=== PATIENT | female | born 1990 | race Two or more races ===

== ENCOUNTER 2025-03-24 20:02 | Observation (INO) | payer MEDICAID, SELFPAY ==
[2025-03-24] VITALS (47 sets, daily range): BP systolic 125–174; BP diastolic 60–77; PULSE 79–97; RESP 16–99; TEMP 36.9; O2SAT 94–99; BMI 53.4
[2025-03-24 21:47] LABS: Collection Type, Urine Clean Catch
[2025-03-24 22:05] LABS: Creatinine,Random Urine 240 mg/dL (30-125); Protein Total, Random Urine 45 mg/dL (1-14)
[2025-03-24 22:16] LABS: Bacteria,Urine Rare; Bilirubin,Urine Negative (Negative); Blood,Urine Negative (Negative); Calcium Oxalate Crystals,Urine 4+; Clarity,Urine Clear (Clear/Hazy); Color,Urine Yellow (Lt Yel-Yel); Glucose, Urine Negative (Negative); Ketones,Urine Negative (Negative); Leukocyte Esterase,Urine Negative (Negative); Nitrite,Urine Negative (Negative); PH,Urine 5.5 (5.0-7.0); Protein,Urine Trace (Neg - Trace); RBC,Urine 5 /hpf (0-3); Squamous Epithelial Cell,Urine 4 /hpf (0-5); Urobilinogen,Urine Negative mg/dL (0.0-1.0); WBC,Urine 5 /hpf (0-5)
[2025-03-24] MEDS: LABETALOL 100 MG TABLET 200 MG PO (22:18)
[2025-03-24] MEDS: metFORMIN 500 MG TABLET PO (22:18)
[2025-03-24 22:21] LABS: Basophils % (Auto) 0 % (0-2.5); Eosinophils # (Auto) 0.1 Thou/mm3 (0.0-0.5); Eosinophils % (Auto) 1 % (0-10); Hematocrit 31.2 % (36.0-46.0); Hemoglobin 10.6 g/dL (12.0-16.0); Immature Granulocytes % (Auto) 1 % (0-0); Immature Granulocytes Auto 0.06 Thou/mm3 (0.00-0.00); Lymphocytes # (Auto) 1.6 Thou/mm3 (1.0-4.8); Lymphocytes % (Auto) 17 % (10-50); Mean Corpuscular Hemoglobin 26.2 pg (25.0-35.0); Mean Corpuscular Volume 77 fL (80-100); Monocytes # (Auto) 0.7 Thou/mm3 (0.0-0.8); Monocytes % (Auto) 7 % (0-12); Neutrophils % (Auto) 74 % (37-80); Nucleated Red Blood Cell % 0 /100 WBC (0); Platelet Count 228 Thou/mm3 (140-440); Red Blood Count 4.04 Miln/mm3 (4.00-5.20); White Blood Count 9.5 Thou/mm3 (3.6-11.0)
[2025-03-24 22:43] LABS: Fibrinogen 455 mg/dL (175-375); Partial Thromboplastin Time 26.8 Seconds (22.0-36.0); Prothrombin Time 10.6 Seconds (9.0-12.2)
[2025-03-24 22:47] LABS: Alanine Aminotransferase 18 U/L (10-49); Albumin, Serum 3.8 gm/dL (3.5-5.0); Albumin/Globulin Ratio 1.4 (1.2-2.2); Alkaline Phosphatase 107 U/L (46-116); Anion Gap 11 (7-16); Aspartate Amino Transferase 20 U/L (0-34); BUN/Creatinine Ratio 16 Ratio (12-20); Bilirubin,Total 0.3 mg/dL (0.3-1.2); Blood Urea Nitrogen 8 mg/dL (9-23); Calcium 8.9 mg/dL (8.3-10.6); Calcium (Corrected) 9.1 mg/dL (8.5-10.1); Carbon Dioxide 23.5 mMol/L (20.0-31.0); Chloride 107 mMol/L (98-107); Creatinine (Component) 0.5 mg/dL (0.6-1.3); Estimated Creatinine Clearance 205.9 mL/min (>60); Globulin 2.7 gm/dL (2.3-3.5); Glucose 85 mg/dL (74-106); Osmolality,Calculated 278 (275-295); Potassium 3.8 mMol/L (3.4-5.1); Sodium 141 mMol/L (136-145); Total Protein 6.5 gm/dL (5.7-8.2); Uric Acid 5.9 mg/dL (3.1-7.8); eGFR > 60 See Note
[2025-03-24] MEDS: BETAMET ACET/BETAMET NA PH (Celestone) 6 MG/ML VIAL 12 MG IM (23:30)
== END 2025-03-24 23:45 | disposition home or self-care (01) ==
PROVIDERS: Admitting Provider Specialist; Visit Provider Specialist
DX: O14.93 Unspecified pre-eclampsia, third trimester (principal); Z3A.31 31 weeks gestation of pregnancy
CPT/HCPCS: 36415; 59899; 80053; 81001; 82570; 84156; 84550; 85025; 85384; 85610; 85730; 96372; G0378; J0702; A9270

== ENCOUNTER 2025-03-26 00:16 | Outpatient (CLI) | payer MEDICAID, SELFPAY ==
[2025-03-26] VITALS (9 sets, daily range): BP systolic 135–137; BP diastolic 61–62; PULSE 78–87; RESP 20–98; TEMP 36.9; O2SAT 98–99; BMI 53.8
[2025-03-26] MEDS: BETAMET ACET/BETAMET NA PH (Celestone) 6 MG/ML VIAL 12 MG IM (01:01)
[2025-03-26 01:06] LABS: Creatinine,Urine 109 mg/dL (30-125); Patient Height,Urine 62 Inches; Patient Weight,Urine 295 Pounds; Protein Total, Urine 35 mg/dL (1-14)
[2025-03-26 01:18] LABS: Creatinine 24 Hour,Urine 1.6 gm/24hr (0.6-1.5); Protein Total, 24 hr Urine 522 mg/24hr (<149); Protein Total, Urine Volume 1490 mL/24hr (600-1800); Total Volume,Urine 1490 mL (600-1800)
[2025-03-26 01:35] LABS: Creatinine (Component) 0.5 mg/dL (0.6-1.3); Estimated Creatinine Clearance 206.9 mL/min (>60); eGFR > 60 See Note
[2025-03-26 02:12] LABS: Collection Time,Urine 24 Hours; Creatinine Clearance Urine 174 mL/min (90-139); Serum Creatinine Result 0.5 mg/dL
== END 2025-03-26 02:21 | disposition home or self-care (01) ==
LOC: S4S1 00:17 → S4SX 00:17
PROVIDERS: Referring Provider Specialist; Visit Provider Specialist
DX: Z34.83 Encounter for supervision of other normal pregnancy, third trimester (principal); Z36.89 Encounter for other specified antenatal screening; Z3A.31 31 weeks gestation of pregnancy
CPT/HCPCS: 36415; 59025; 82565; 82575; 84156; 96372; J0702

== ENCOUNTER 2025-03-29 08:47 | Outpatient (AMB) | payer MEDICAID, SELFPAY ==
--- NOTE | 2025-03-29 08:54 | OBCLNT_ITS ---
Vital Signs 03/29/25 09:00 Height 1.57 m Height Method Stated Weight 132.619 kg Weight Measurement Method Standing Scale BMI 53.4 BP 156/87 H Blood Pressure Source Automatic Cuff Blood Pressure Location Right Upper Arm Position Sitting Respiration 17 Pulse 83 Pulse Source Monitor Temp 97.1 F Temp Source Temporal Artery Scan Pulse Oximetry (%) 97 Oxygen Delivery Method Room Air Allergies/Home Meds Allergies & Medications Allergies No Known Allergies Allergy (Verified 03/29/25 09:01) Medication Reconciliation vitamins no.144-folic acid 400 mcg chewable tablet () 1 mcg PO QDAY #20 tabs 07/06/19 [Rx Confirmed 03/29/25] labetalol 200 mg tablet 200 mg PO TID 03/24/25 [History Confirmed 03/29/25] metformin 500 mg tablet 500 mg PO BID 03/24/25 [History Confirmed 03/29/25] blood sugar diagnostic (Blood Glucose Test strips) #10 ea 03/29/25 [Rx] blood-glucose meter #1 ea 03/29/25 [Rx] lancets #100 ea 03/29/25 [Rx] Intake Visit Data Collection New Patient or Established: Established Patient (seen at [facility] within 3 years) Reason for Visit:: - Transfer of care from Dr. 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 1. Little interest or pleasure in doing things: not at all 2. Feeling down, depressed, or hopeless: not at all Total score: 0 PHQ-9 3. Trouble falling or staying asleep, or sleeping too much: Not at all 4. Feeling tired or having little energy: Not at all 5. Poor appetite or overeating: Not at all 6. Feeling bad about yourself - or that you are a failure or have let yourself or your family down: Not at all 7. Trouble concentrating on things, such as reading the newspaper or watching television: Not at all 8. Moving or speaking so slowly that other people could have noticed? - Or the opposite - being so fidgety or restless that you have been moving around a lot more than usual: not at all 9. Thoughts that you would be better off or of hurting yourself in some way: Not at all Total score: 0 If you checked off any problems, how difficult have these problems made it for you to do your work, take care of things at home, or get along with other people?: not difficult at all Source: Developed by Drs. Abdulkadir Almonte, Patricia Kirk, Aurelio Clemons and colleagues, with an educational uye from [employer]. Depression screen completed yes Social History Living Situation History Marital Status: Lives With: Family Housing: House Tobacco History Smoking Status: Never smoker Alcohol History Alcohol Intake: Never Domestic Abuse History Do You Feel Safe at Home: Yes History of Present Illness HPI Narrative - Grisel Ortega is a 34-year-old with one SAB presenting for transfer of care at 23 weeks 2 days gestation. - Past medical history significant for: - Gestational diabetes mellitus (GDM) with unspecified control - Essential hypertension - Current medications: - Labetalol 200 mg three times daily - Metformin twice daily - Patient reports: - Normal movements - No symptoms suggestive of preeclampsia - Treatment adherence: - Not checking blood sugars due to lack of glucometer - Taking prescribed medications as directed - Planned interventions: - Glucometer to be prescribed for four times daily blood sugar checks - 24-hour urine test scheduled for next week - Delivery planned for 37-38 weeks unless blood pressure or sugars increase No contractions/ LOF/VB, reports good FM No MAS/VC/RUQ/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 Dixon. History of gestational diabetes mellitus and essential hypertension, currently on labetalol 200 mg TID and metformin BID. Reports good movement and denies symptoms suggestive of preeclampsia. Not checking blood sugars due to lack of glucometer. heart rate 145 bpm, anatomy survey normal. JACKIE 05/24/2025. History of deliveries at 37 weeks. Plan: Problem List: Gestational diabetes melli tus, essential hypertension, syphilis (treated), . Prescribe glucometer and instruct patien t to check blood glucose four times daily (fasting and 1 hour post-meals). Continue labetalol and metformin as directed. Schedule 24-hour urine collection next week to monitor for preeclampsia. Plan for delivery at 37?38 weeks unless blood pressure or glucose levels worsen. Arrange anesthesia consult and initiate monitoring. Follow up in one week. Routine counseling provided regarding labor signs, dietary guidance, and activity modifications. Menstrual History Menstrual reliability: definite Flow: normal Menstrual regularity: regular Monthly: Yes Age at menarche: 10 On control pills at conception: No OB History : 7 Para: 5 Hx Total # of Abortions (Spontaneous & Elective): 1 # of Living Children: 5 Delivery History 1st : Child's name: LESLIE MARTIN date: 07/31/08 sex: male Gestational age at delivery (weeks): 38 Delivery type: vaginal weight (lbs): 2267.962 g History of depression before or after : No 2nd : Child's name: SHERLEY MARTIN date: 07/20/09 sex: female Gestational age at delivery (weeks): 38 Delivery type: vaginal weight (lbs): 2267.962 g History of depression before or after : No 3rd : Child's name: MADALYN MARTIN date: 07/27/10 sex: male Gestational age at delivery (weeks): 38 Delivery type: vaginal weight (lbs): 2267.962 g History of depression before or after : No 4th : Child's name: PIO MARTIN date: 03/07/16 sex: female Gestational age at delivery (weeks): 38 Delivery type: vaginal weight (lbs): 2267.962 g History of depression before or after : No 5th : Child's name: LAUREL ORTEGA date: 07/09/19 sex: male Gestational age at delivery (weeks): 38 Delivery type: vaginal weight (lbs): 2721.554 g History of depression before or after : Yes Infection History & Risk Evaluation History of STDs: none HIV risk evaluation: low risk Hepatitis B risk evaluation: low risk Patient or partner has history of Genital Herpes: No Varicella/chicken pox status: immunized Genetic Screening & History Genetic Screening/Teratology Counseling - Includes patient, baby's father, or anyone in either family with: 1. Patient's age 35 years or older as of estimated date of delivery: Yes 2. Thalassemia (Mosotho, Bangladeshi, Mediterranean, or Background); MCV less than 80: No 3. Neural Tube Defect (Meningomyelocele, Spina Bifida, or Anencephaly): No 4. Congenital Heart Defect: No 5. Down Syndrome: No 6. Jamari-Sachs (Ashkenazi Baptist, Cajun, Telugu Bangladeshi): No 7. Mehnaz Disease (Ashkenazi Baptist): No 8. Familial Dysautonomia (Ashkenazi Baptist): No 9. Sickle Cell Disease or Trait (): No 10. Hemophilia or other blood disorders: No 11. Muscular Dystrophy: No 12. Cystic Fibrosis: No 13. Vance's Chorea: No 14. Mental Retardation/Autism: No 15. Other inherited genetic or chromosomal disorder: No 16. Maternal Metabolic Disorder (EG,TYPE 1 Diabetes, PKU): No 17. Patient or baby's father had a child with defects not listed above: No 18. Recurrent loss or a stillbirth: No 19. Medications (including supplements, vitamins, herbs or otc drugs)/illicit/recreational drugs/alcohol since last menstrual period: No 20. Any other: No Comments/Counseling: ADHD HISTORY ON ONE CHILD Infection History 1. Live with someone with TB or exposed to TB: No 2. Rash or viral illness since last menstrual period: No 3. Hepatitis B,C: No Other (see comments) Source: [employer] Exam General General Appearance: alert, in no apparent distress and healthy appearing Head Head exam: atraumatic Neck Neck exam: Present normal inspection and trachea midline Chest Chest inspection: Present normal inspection and symmetric chest wall rise External exam: Present normal external exam; Absent tenderness Neuro Neurological exam: Present oriented X3 Psych Psychiatric exam: Present normal affect and normal mood Office Procedures OB Clinic LOC & Office Proc's Nursing/Assessment Patient Status: Established Patient OB Clinic Nursing Assessment: Medication Reconciliation, Update PMH in EMR and Vital Signs OB Clinic Coordination of Care: Complex Care and Chronic Disease 1-5, Consent,records obtained, informed consent, Education Simp Pt/Fam, Lab and Imaging orders, Results/Orders obtained and Staff clarify orders Special Needs: Heart tones Established Patient Charge Established Patient Point Assignment: 135 Established Patient Point Charge: EP Level 4 (120-155) Assessment & Plan Diagnosis / Problem List (1) Supervision of high risk , unspecified, third trimester: Status: Acute Plan Problem List - Gestational diabetes mellitus - Essential hypertension - Syphilis - 7 para 5 Assessment - : , 34-year-old female, JACKIE 05/24/2025 - Gestational diabetes mellitus with unspecified control - Essential hypertension, on labetalol 200 mg TID - History of positive RPR at start of , now nonreactive - status: Normal anatomy survey, FHR 145 bpm, normal movements - History of deliveries at 37 weeks Plan - Prescribe glucometer for blood sugar checks four times daily (upon waking and 1 hour after each meal) - Continue labetalol 200 mg three times daily and metformin twice daily - Schedule anesthesia and monitoring at the hospital - Plan delivery for 37-38 weeks unless blood pressure or sugars increase - Repeat 24-hour urine test next week to monitor for preeclampsia - Follow up appointment in one week Educated the patient on labor signs, including regular contractions, lower back pain, and changes in vaginal discharge. Advised avoiding heavy lifting and getting adequate rest. Instructed to contact the office immediately if any signs occur. Discussed the importance of a balanced diet rich in folic acid, iron, and calcium, and provided a list of recommended and to-avoid foods. Emphasized avoiding high-sugar foods to reduce gestational diabetes risk. Encour aged hydration and frequent, small meals for energy..
[2025-03-29 09:00] VITALS: BP 156/87; PULSE 83; RESP 17; TEMP 36.2; O2SAT 97; BMI 53.4
== END 2025-03-29 09:46 | disposition home or self-care (01) ==
LOC: HODSOBC 08:47
PROVIDERS: Supervising Provider Obstetrics & Gynecology; Visit Provider Obstetrics & Gynecology
DX: O09.523 Supervision of elderly multigravida, third trimester (principal); O09.43 Supervision of pregnancy with grand multiparity, third trimester; Z3A.32 32 weeks gestation of pregnancy; O09.893 Supervision of other high risk pregnancies, third trimester; O24.415 Gestational diabetes mellitus in pregnancy, controlled by oral hypoglycemic drugs; O10.013 Pre-existing essential hypertension complicating pregnancy, third trimester; O98.113 Syphilis complicating pregnancy, third trimester; O09.293 Supervision of pregnancy with other poor reproductive or obstetric history, third trimester; Z87.59 Personal history of other complications of pregnancy, childbirth and the puerperium; Z79.899 Other long term (current) drug therapy
CPT/HCPCS: 99214; G0463

== ENCOUNTER 2025-04-04 15:19 | Outpatient (AMB) | payer MEDICAID, SELFPAY ==
--- NOTE | 2025-04-04 15:37 | OBCLNT_ITS ---
Vital Signs 04/04/25 15:45 Height 1.57 m Height Method Stated Weight 132.619 kg Weight Measurement Method Standing Scale BMI 53.8 BP 143/84 H Blood Pressure Source Automatic Cuff Blood Pressure Location Right Upper Arm Position Sitting Respiration 22 H Pulse 102 H Pulse Source Monitor Temp 97.9 F Temp Source Oral Pulse Oximetry (%) 98 Oxygen Delivery Method Room Air Allergies/Home Meds Allergies & Medications Allergies No Known Allergies Allergy (Verified 04/17/25 15:37) Medication Reconciliation vitamins no.144-folic acid 400 mcg chewable tablet () 1 mcg PO QDAY #20 tabs 07/06/19 [Rx Confirmed 04/17/25] labetalol 200 mg tablet 200 mg PO TID 03/24/25 [History Confirmed 04/17/25] metformin 500 mg tablet 500 mg PO BID 03/24/25 [History Confirmed 04/17/25] blood sugar diagnostic (Blood Glucose Test strips) #10 ea 03/29/25 [Rx Confirmed 04/17/25] blood-glucose meter #1 ea 03/29/25 [Rx Confirmed 04/17/25] lancets #100 ea 03/29/25 [Rx Confirmed 04/17/25] labetalol 400 mg tablet 400 mg PO BID 30 days #60 tabs 04/17/25 [Rx Confirmed 04/17/25] nifedipine 60 mg tablet,extended release 60 mg PO QDAY 30 days #30 tabs 04/17/25 [Rx Confirmed 04/17/25] nifedipine 60 mg tablet,extended release 60 mg PO QDAY 30 days #30 tabs 04/17/25 [Rx Confirmed 04/17/25] Intake Visit Data Collection New Patient or Established: Established Patient (seen at [facility] within 3 years) Reason for Visit:: CARE Seen by Clinical Staff ONLY (RN/MA): No Order Schedule Clerk Required: No Do You Feel Safe at Home: Yes Authorities Contacted: N/A PCP or OBGYN visit in last 3 months: Yes Hx Now: Yes Are you currently on any form of Control: No Pain Present Currently: No Pain Scale Used: Cheney-Nuñez/Numerical Pain scale:: 0 Smoking Status Smoking Status: Never smoker Questionnaires Covid-19 Vaccine Questionnaire Has patient been vacinated for Covid-19 Have you been vacinated for Covid-19: Yes PHQ-9 PHQ-2 Over the last 2 weeks, how often have you been bothered by any of the following problems? 1. Little interest or pleasure in doing things: not at all 2. Feeling down, depressed, or hopeless: not at all Total score: 0 PHQ-9 3. Trouble falling or staying asleep, or sleeping too much: Not at all 4. Feeling tired or having little energy: Not at all 5. Poor appetite or overeating: Not at all 6. Feeling bad about yourself - or that you are a failure or have let yourself or your family down: Not at all 7. Trouble concentrating on things, such as reading the newspaper or watching television: Not at all 8. Moving or speaking so slowly that other people could have noticed? - Or the opposite - being so fidgety or restless that you have been moving around a lot more than usual: not at all 9. Thoughts that you would be better off or of hurting yourself in some way: Not at all Total score: 0 Source: Developed by Drs. Abdulkadir Almonte, Patricia Kirk, Aurelio Clemons and colleagues, with an educational yue from [employer] 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 Dixon. History of gestational diabetes mellitus and essential hypertension, currently on labetalol 200 mg TID and metformin BID. Reports good movement and denies symptoms suggestive of preeclampsia. Not checking blood sugars due to lack of glucometer. heart rate 145 bpm, anatomy survey normal. JACKIE 05/24/2025. History of deliveries at 37 weeks. Plan: Problem List: Gestational diabetes lucíai tus, essential hypertension, syphilis (treated), . Prescribe glucometer and instruct patien t to check blood glucose four times daily (fasting and 1 hour post-meals). Continue labetalol and metformin as directed. Schedule 24-hour urine collection next week to monitor for preeclampsia. Plan for delivery at 37?38 weeks unless blood pressure or glucose levels worsen. Arrange anesthesia consult and initiate monitoring. Follow up in one week. Routine counseling provided regarding labor signs, dietary guidance, and activity modifications. 04/04/25 -?-?-?-?-?-?-?-?-?-?-?-?- 32w 6d 132.619 kg 143/84 at 32w6d, transferred in third trimester. History of gestational diabetes, chronic/gestational hypertension, prior , and treated syphilis. On labetalol and metformin; adherent to diet and medications. Reports good FM, no contractions, LOF, VB, MAS, VC, or epigastric pain. Glucose readings reviewed: 84?196 mg/dL, overall stable. BP reported as well controlled; FHT 148?150 bpm. Concerned about possible early delivery based on history. Plan: Continue labetalol and metformin, with metformin taken BID near meals. Maintain glucose and BP logs. Await call to begin NSTs twice weekly. Schedule ultrasound at 36 weeks. Follow up in 1 week. Anticipate delivery around 37?38 weeks pending control. Routine precautions and education reviewed. 04/09/25 -?-?-?-?-?-?-?-?-?-?-?-?- 33w 4d 131.655 kg 146/85 @34w, presents with HTN, GDM, MAS, and left pelvic pain. On labetalol 600mg/day with continued MAS; BP control suboptimal. Glucose well controlled on metformin (fasting 81?117, postprandial 109?150). Reports intermittent pelvic pain impairing mobility. No LOF/VB/CTX. FHT WNL. Hx of elevated urine protein and received steroids at 32w. Plan: Increase labetalol to 400mg BID, s end to hospital for LFTs, renal labs. Monitor for preeclampsia. Continue metformin. Instructions for L&D visit if pain persists. Anticipate delivery 36?37w, earlier if unstable. F/u in 1 week. 04/17/25 -?-?-?-?-?-?-?-?-?-?-?-?- 34w 5d 133.47 kg 159/88 G5 at 34w5d with chronic hypertension and gestational diabetes, presents with BP 159/88, significant unilateral foot swelling, and reported contractions. Reports good FM. Denies MAS/VC/epigastric pain. Previous evaluation ruled out preeclampsia (LFTs/LDH/platelets normal), though proteinuria was 600. Labs pending. Prescription for labetalol 800 mg was not received. Blood sugars stable on metformin. Plan: New prescription for labetalol 400 mg BID and initiate nifedipine at lunch. Follow up for BP check and labs; consider induction if BP remains elevated. Order hospital ultrasound to confirm position. Continue FM monitoring, preeclampsia precautions, and weekly visits. JACKIE Calculator Estimated Delivery Date Method Current WG Current Estimate 05/24/25 Ultrasound #1 34w 6d Other Estimates 05/24/25 LMP (Uncertain) 34w 6d Office Procedures OB Clinic LOC & Office Proc's Nursing/Assessment Patient Status: Established Patient OB Clinic Nursing Assessment: Medication Reconciliation, Update PMH in EMR and Vital Signs OB Clinic Coordination of Care: Complex Care and Chronic Disease 1-5, Consent,records obtained, informed consent, Education Simp Pt/Fam, Lab and Imaging orders, Results/Orders obtained and Staff clarify orders Special Needs: Heart tones Established Patient Charge Established Patient Point Assignment: 135 Established Patient Point Charge: EP Level 4 (120-155)
[2025-04-04 15:45] VITALS: BP 143/84; PULSE 102; RESP 22; TEMP 36.6; O2SAT 98; BMI 53.8
== END 2025-04-04 15:53 | disposition home or self-care (01) ==
LOC: HODSOBC 15:19
PROVIDERS: PCP Obstetrics & Gynecology; Referring Provider Obstetrics & Gynecology; Supervising Provider Obstetrics & Gynecology; Visit Provider Obstetrics & Gynecology
DX: O09.523 Supervision of elderly multigravida, third trimester (principal); O09.43 Supervision of pregnancy with grand multiparity, third trimester; O09.293 Supervision of pregnancy with other poor reproductive or obstetric history, third trimester; O34.219 Maternal care for unspecified type scar from previous cesarean delivery; O09.893 Supervision of other high risk pregnancies, third trimester; O10.913 Unspecified pre-existing hypertension complicating pregnancy, third trimester; O24.415 Gestational diabetes mellitus in pregnancy, controlled by oral hypoglycemic drugs; Z3A.32 32 weeks gestation of pregnancy; Z79.899 Other long term (current) drug therapy
CPT/HCPCS: 99214; G0463

== ENCOUNTER 2025-04-09 13:48 | Outpatient (AMB) | payer MEDICAID, SELFPAY ==
[2025-04-09 14:30] VITALS: BP 146/85; PULSE 98; RESP 18; TEMP 36; O2SAT 98; BMI 53.4
--- NOTE | 2025-04-09 14:30 | OBCLNT_ITS ---
Vital Signs 04/09/25 14:30 Height 1.57 m Height Method Stated Weight 131.655 kg Weight Measurement Method Standing Scale BMI 53.4 BP 146/85 H Blood Pressure Source Automatic Cuff Blood Pressure Location Left Upper Arm Position Sitting Respiration 18 Pulse 98 Pulse Source Monitor Temp 96.8 F Temp Source Oral Pulse Oximetry (%) 98 Oxygen Delivery Method Room Air Allergies/Home Meds Allergies & Medications Allergies No Known Allergies Allergy (Verified 04/09/25 14:31) Medication Reconciliation vitamins no.144-folic acid 400 mcg chewable tablet () 1 mcg PO QDAY #20 tabs 07/06/19 [Rx Confirmed 04/09/25] labetalol 200 mg tablet 200 mg PO TID 03/24/25 [History Confirmed 04/09/25] metformin 500 mg tablet 500 mg PO BID 03/24/25 [History Confirmed 04/09/25] blood sugar diagnostic (Blood Glucose Test strips) #10 ea 03/29/25 [Rx Confirmed 04/09/25] blood-glucose meter #1 ea 03/29/25 [Rx Confirmed 04/09/25] lancets #100 ea 03/29/25 [Rx Confirmed 04/09/25] Intake Visit Data Collection New Patient or Established: Established Patient (seen at [facility] within 3 years) Reason for Visit:: OBC Seen by Clinical Staff ONLY (RN/MA): No Customer Services Supervisor Required: No Do You Feel Safe at Home: Yes Authorities Contacted: N/A PCP or OBGYN visit in last 3 months: Yes Date of Last PCP or OBGYN visit: 04/04/25 Hx Now: Yes Are you currently on any form of Control: No Pain Present Currently: No Pain Scale Used: Cheney-Nuñez/Numerical Pain scale:: 0 Smoking Status Smoking Status: Never smoker Questionnaires Covid-19 Vaccine Questionnaire Has patient been vacinated for Covid-19 Have you been vacinated for Covid-19: Yes PHQ-9 PHQ-2 Over the last 2 weeks, how often have you been bothered by any of the following problems? 1. Little interest or pleasure in doing things: not at all 2. Feeling down, depressed, or hopeless: not at all Total score: 0 PHQ-9 3. Trouble falling or staying asleep, or sleeping too much: Not at all 4. Feeling tired or having little energy: Not at all 5. Poor appetite or overeating: Not at all 6. Feeling bad about yourself - or that you are a failure or have let yourself or your family down: Not at all 7. Trouble concentrating on things, such as reading the newspaper or watching television: Not at all 8. Moving or speaking so slowly that other people could have noticed? - Or the opposite - being so fidgety or restless that you have been moving around a lot more than usual: not at all 9. Thoughts that you would be better off or of hurting yourself in some way: Not at all Total score: 0 If you checked off any problems, how difficult have these problems made it for you to do your work, take care of things at home, or get along with other people?: not difficult at all Source: Developed by Drs. Abdulkadir Almonte, Patricia Kirk, Aurelio Clemons and colleagues, with an educational yue from [employer]. 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 Patient reports pelvic pain on the left side that comes and goes, sometimes lasting all day. No contractions, LOF, VB and reports good FM. Patient reports headaches with pressure sensation. Denies VC, and epigastric pain. - Grisel Ortega is a female with gestational diabetes and hypertension presenting for follow-up of her chronic conditions and new symptoms. - Blood sugar control: - Fasting sugars ranging from 81-117 mg/dL - Post-meal sugars ranging from 109-150 mg/dL - Patient reports anxiety about checking sugars frequently - Hypertension: - Currently taking labetalol 200 mg three times daily (600 mg total) - Experiencing headaches that come and go - Describes as pressure - Partially relieved with Tylenol but persists - New left-sided pelvic pain: - Intermittent, sometimes lasting all day - Can be severe, affecting ability to walk or stand - No associated tightening reported - Denies: - Current flashes of light (experienced in the past) - Right-sided abdominal pain - Recent hospitalization at 32 weeks for elevated urine protein - Received steroid shots for lung maturation - Expresses concern about liver and kidney health due to past finding of liver spots heart tones: [Not mentioned] bpm. Laboratory, Imaging, and Diagnostic Test Results - Blood glucose readings: - Fastin, 81, 94, 117, 84 mg/dL - Post-prandial: 138, 140, 109 mg/dL Care OB Visit Log OB Flowsheet Initial Weight: Not Recorded Date -?-?-?-?-?-?-?-?-?-?-?-?- EGA Weight BP Alb Glu CTX Pres Fundal ht FHR Mov Dilation Station Effacement Hx Notes Visit Note 03/29/25 -?-?-?-?-?-?-?-?-?-?-?--?- 32w 0d 132.619 kg 156/87 at 23 weeks and 2 days gestation, presents for transfer of care from Dr. Dixon. History of gestational diabetes mellitus and essential hypertension, currently on labetalol 200 mg TID and metformin BID. Reports good movement and denies symptoms suggestive of preeclampsia. Not checking blood sugars due to lack of glucometer. heart rate 145 bpm, anatomy survey normal. JACKIE 05/24/2025. History of deliveries at 37 weeks. Plan: Problem List: Gestational diabetes melli tus, essential hypertension, syphilis (treated), . Prescribe glucometer and instruct patien t to check blood glucose four times daily (fasting and 1 hour post-meals). Continue labetalol and metformin as directed. Schedule 24-hour urine collection next week to monitor for preeclampsia. Plan for delivery at 37?38 weeks unless blood pressure or glucose levels worsen. Arrange anesthesia consult and initiate monitoring. Follow up in one week. Routine counseling provided regarding labor signs, dietary guidance, and activity modifications. 04/09/25 -?-?-?-?-?-?-?-?-?-?-?-?- 33w 4d 131.655 kg 146/85 @34w, presents with HTN, GDM, MAS, and left pelvic pain. On labetalol 600mg/day with continued MAS; BP control suboptimal. Glucose well controlled on metformin (fasting 81?117, postprandial 109?150). Reports intermittent pelvic pain impairing mobility. No LOF/VB/CTX. FHT WNL. Hx of elevated urine protein and received steroids at 32w. Plan: Increase labetalol to 400mg BID, s end to hospital for LFTs, renal labs. Monitor for preeclampsia. Continue metformin. Instructions for L&D visit if pain persists. Anticipate delivery 36?37w, earlier if unstable. F/u in 1 week. JACKIE Calculator Estimated Delivery Date Method Current WG Current Estimate 05/24/25 Ultrasound #1 33w 6d Other Estimates 05/24/25 LMP (Uncertain) 33w 6d Exam General General Appearance: alert, in no apparent distress and healthy appearing Head Head exam: atraumatic Neck Neck exam: Present normal inspection and trachea midline Chest Chest inspection: Present normal inspection and symmetric chest wall rise External exam: Present normal external exam; Absent tenderness Neuro Neurological exam: Present oriented X3 Psych Psychiatric exam: Present normal affect and normal mood Office Procedures OB Clinic LOC & Office Proc's Nursing/Assessment Patient Status: Established Patient OB Clinic Nursing Assessment: Medication Reconciliation, Update PMH in EMR and Vital Signs OB Clinic Coordination of Care: Education Complex Pt/Fam, Consent,records obtained, informed consent, Lab and Imaging orders and Staff clarify orders Special Needs: Heart tones Established Patient Charge Established Patient Point Assignment: 110 Established Patient Point Charge: EP Level 3 (80-115) Assessment & Plan Diagnosis / Problem List (1) Supervision of high risk , unspecified, third trimester: Status: Acute Plan Problem List - Gestational Diabetes Mellitus - Gestational Hypertension - Pelvic Pain - Headache Assessment 34-year-old at 34 weeks gestation presenting with persistent hypertension, currently on labetalol 200mg TID (600mg total daily). Blood pressure remains a primary concern despite medication. Patient reports intermittent left-sided pelvic pain, which can be severe enough to impair mobility. Gestational diabetes is well-controlled on metformin with recent blood glucose readings within target range (fasting 81-117 mg/dL, postprandial 109-140 mg/dL). Patient experiences recurrent headaches, described as pressure-like, partially responsive to Tylenol. No visual disturbances or right upper quadrant pain reported. History of elevated urinary protein (500 mg/dL at 32 weeks) and previous liver abnormalities (black spots) noted. Patient received corticosteroids at 32 weeks gestation. Plan - Increase labetalol dosage to 800mg daily (400mg morning, 400mg evening) - Monitor blood pressure closely; if not controlled, consider introducing a second medication or hospitalization for IV medication - Patient instructed to go to 4th floor of [facility] (labor and delivery) if experiencing persistent pelvic pain for monitoring and evaluation of contractions - Continue current metformin regimen and diet for blood sugar management - Patient sent to hospital for immediate lab work to check liver and kidney function - Schedule follow-up appointment in one week - Plan for delivery between 36-37 weeks gestation, potentially earlier (35 weeks) if blood pressure remains uncontrolled - Continue monitoring for signs of preeclampsia (headaches, visual disturbances, right upper quadrant pain) (If not initial visit and GA >20 weeks): 1. Progress Reviewed gestational age, growth, and heart rate. Planned frequent visits (every 2 weeks until 36 weeks, then weekly). 2. Instructed patient to monitor movements and report decreases immediately. 3. Testing Counseled on routine third-trimester labs per guidelines. Discussed potential need for ultrasound or monitoring based on risk factors. 4. Preeclampsia Precaution Educated on preeclampsia signs: severe headache, vision changes, right upper quadrant pain, sudden swelling. Advised urgent reporting of symptoms and discussed blood pressure monitoring if high risk. 5. Labor Precautions Reviewed labor signs: regular contractions, pelvic pressure, back pain, bleeding, or fluid leakage. Instructed to seek immediate care for these symptoms. 6. Lifestyle and Delivery Preparation Reinforced vitamins, nutrition, and safe activity. Discussed plan, pain management, and . Advised on labor preparation (e.g., hospital bag) and expectations. 7. Psychosocial Support Assessed emotional well-being and offered resources for mental health or parenting support.
== END 2025-04-09 15:22 | disposition home or self-care (01) ==
LOC: HODSOBC 13:48
PROVIDERS: Supervising Provider Obstetrics & Gynecology; Visit Provider Obstetrics & Gynecology
DX: O09.523 Supervision of elderly multigravida, third trimester (principal); O09.893 Supervision of other high risk pregnancies, third trimester; O24.415 Gestational diabetes mellitus in pregnancy, controlled by oral hypoglycemic drugs; O13.3 Gestational [pregnancy-induced] hypertension without significant proteinuria, third trimester; Z3A.33 33 weeks gestation of pregnancy; O99.891 Other specified diseases and conditions complicating pregnancy; R10.2 Pelvic and perineal pain; Z79.899 Other long term (current) drug therapy
CPT/HCPCS: 99213; G0463

== ENCOUNTER 2025-04-09 16:03 | Outpatient (CLI) | payer MEDICAID, SELFPAY ==
[2025-04-09] VITALS (9 sets, daily range): BP systolic 127–144; BP diastolic 58–77; PULSE 79–88; RESP 18–97; TEMP 36.8; BMI 53.0
[2025-04-09 17:33] LABS: Collection Type, Urine Clean Catch
[2025-04-09 17:34] LABS: Basophils % (Auto) 0 % (0-2.5); Eosinophils # (Auto) 0.1 Thou/mm3 (0.0-0.5); Eosinophils % (Auto) 1 % (0-10); Hematocrit 32.2 % (36.0-46.0); Hemoglobin 11.1 g/dL (12.0-16.0); Immature Granulocytes % (Auto) 1 % (0-0); Immature Granulocytes Auto 0.06 Thou/mm3 (0.00-0.00); Lymphocytes # (Auto) 1.5 Thou/mm3 (1.0-4.8); Lymphocytes % (Auto) 14 % (10-50); Mean Corpuscular HGB Conc 34.5 g/dl (31.0-37.0); Mean Corpuscular Hemoglobin 26.5 pg (25.0-35.0); Mean Corpuscular Volume 77 fL (80-100); Monocytes # (Auto) 0.5 Thou/mm3 (0.0-0.8); Monocytes % (Auto) 5 % (0-12); Neutrophils # (Auto) 8.2 Thou/mm3 (1.8-7.7); Neutrophils % (Auto) 80 % (37-80); Nucleated Red Blood Cell % 0 /100 WBC (0); Platelet Count 239 Thou/mm3 (140-440); Red Blood Count 4.19 Miln/mm3 (4.00-5.20); White Blood Count 10.3 Thou/mm3 (3.6-11.0)
[2025-04-09 17:44] LABS: Bilirubin,Urine Negative (Negative); Blood,Urine Negative (Negative); Clarity,Urine Clear (Clear/Hazy); Color,Urine Yellow (Lt Yel-Yel); Glucose, Urine Negative (Negative); Ketones,Urine 1+ (Negative); Leukocyte Esterase,Urine Negative (Negative); Nitrite,Urine Negative (Negative); PH,Urine 5.5 (5.0-7.0); Protein,Urine Trace (Neg - Trace); RBC,Urine 1 /hpf (0-3); Specific Gravity,Urine 1.025 (1.001-1.035); Squamous Epithelial Cell,Urine 3 /hpf (0-5); WBC,Urine 2 /hpf (0-5)
[2025-04-09 17:52] LABS: Alanine Aminotransferase 22 U/L (10-49); Albumin, Serum 3.7 gm/dL (3.5-5.0); Albumin/Globulin Ratio 1.5 (1.2-2.2); Alkaline Phosphatase 134 U/L (46-116); Anion Gap 12 (7-16); Aspartate Amino Transferase 20 U/L (0-34); BUN/Creatinine Ratio 13 Ratio (12-20); Bilirubin,Total 0.4 mg/dL (0.3-1.2); Blood Urea Nitrogen 5 mg/dL (9-23); Calcium 9.3 mg/dL (8.3-10.6); Calcium (Corrected) 9.5 mg/dL (8.5-10.1); Carbon Dioxide 21.6 mMol/L (20.0-31.0); Chloride 108 mMol/L (98-107); Creatinine (Component) 0.4 mg/dL (0.6-1.3); Estimated Creatinine Clearance 256.2 mL/min (>60); Globulin 2.5 gm/dL (2.3-3.5); Glucose 90 mg/dL (74-106); LDH (Lactate Dehydrogenase) 163 U/L (120-246); Osmolality,Calculated 280 (275-295); Potassium 3.8 mMol/L (3.4-5.1); Sodium 142 mMol/L (136-145); Total Protein 6.2 gm/dL (5.7-8.2); Uric Acid 5.7 mg/dL (3.1-7.8); eGFR > 60 See Note
[2025-04-09 17:53] LABS: Partial Thromboplastin Time 26.9 Seconds (22.0-36.0); Prothrombin Time 10.5 Seconds (9.0-12.2)
[2025-04-09 21:31] LABS: Fibrinogen 612 mg/dL (175-375)
== END 2025-04-09 18:50 | disposition home or self-care (01) ==
LOC: S4S1 16:34 → S4SX 16:35
PROVIDERS: PCP Specialist; Referring Provider Specialist; Visit Provider Specialist
DX: Z34.83 Encounter for supervision of other normal pregnancy, third trimester (principal); Z36.9 Encounter for antenatal screening, unspecified; Z3A.33 33 weeks gestation of pregnancy
CPT/HCPCS: 36415; 59025; 80053; 81001; 83615; 84450; 84550; 85025; 85384; 85610; 85730

== ENCOUNTER 2025-04-17 13:42 | Outpatient (AMB) | payer MEDICAID, SELFPAY ==
[2025-04-17 14:09] VITALS: BP 159/88; PULSE 86; RESP 18; TEMP 36.2; O2SAT 98
--- NOTE | 2025-04-17 14:09 | OBCLNT_ITS ---
Vital Signs 04/17/25 14:09 Weight 133.47 kg Weight Measurement Method Standing Scale BP 159/88 H Blood Pressure Source Automatic Cuff Blood Pressure Location Left Upper Arm Position Sitting Respiration 18 Pulse 86 Pulse Source Monitor Temp 97.2 F Temp Source Oral Pulse Oximetry (%) 98 Oxygen Delivery Method Room Air Allergies/Home Meds Allergies & Medications Allergies No Known Allergies Allergy (Verified 04/17/25 15:37) Medication Reconciliation vitamins no.144-folic acid 400 mcg chewable tablet () 1 mcg PO QDAY #20 tabs 07/06/19 [Rx Confirmed 04/17/25] labetalol 200 mg tablet 200 mg PO TID 03/24/25 [History Confirmed 04/17/25] metformin 500 mg tablet 500 mg PO BID 03/24/25 [History Confirmed 04/17/25] blood sugar diagnostic (Blood Glucose Test strips) #10 ea 03/29/25 [Rx Confirmed 04/17/25] blood-glucose meter #1 ea 03/29/25 [Rx Confirmed 04/17/25] lancets #100 ea 03/29/25 [Rx Confirmed 04/17/25] labetalol 400 mg tablet 400 mg PO BID 30 days #60 tabs 04/17/25 [Rx Confirmed 04/17/25] nifedipine 60 mg tablet,extended release 60 mg PO QDAY 30 days #30 tabs 04/17/25 [Rx Confirmed 04/17/25] nifedipine 60 mg tablet,extended release 60 mg PO QDAY 30 days #30 tabs 04/17/25 [Rx Confirmed 04/17/25] Intake Visit Data Collection New Patient or Established: Established Patient (seen at [facility] within 3 years) Reason for Visit:: OBC Seen by Clinical Staff ONLY (RN/MA): No 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 1. Little interest or pleasure in doing things: not at all 2. Feeling down, depressed, or hopeless: not at all Total score: 0 PHQ-9 3. Trouble falling or staying asleep, or sleeping too much: Not at all 4. Feeling tired or having little energy: Not at all 5. Poor appetite or overeating: Not at all 6. Feeling bad about yourself - or that you are a failure or have let yourself or your family down: Not at all 7. Trouble concentrating on things, such as reading the newspaper or watching television: Not at all 8. Moving or speaking so slowly that other people could have noticed? - Or the opposite - being so fidgety or restless that you have been moving around a lot more than usual: not at all 9. Thoughts that you would be better off or of hurting yourself in some way: Not at all Total score: 0 If you checked off any problems, how difficult have these problems made it for you to do your work, take care of things at home, or get along with other people?: not difficult at all Source: Developed by Drs. Abdulkadir Almonte, Patricia Kirk, Aurelio Clemons and colleagues, with an educational yue from [employer]. 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 Patient reports contractions and significant swelling, particularly in one foot. Reports significant swelling, particularly in one foot. Denies MAS, VC, and epigastric pain. - Grisel Ortega is a 34-year-old G5 female at 34 weeks and 5 days gestation with a history of chronic hypertension and gestational diabetes, presenting for a visit. - Chief complaints: - Elevated blood pressure (159/88) - Worse than before labetalol increase to 800 mg daily - Significant swelling, particularly in one foot - Pain and contractions - Did not seek medical attention earlier - Recent healthcare interactions: - Previously sent to hospital - Told she does not have pre-eclampsia - Medication adherence: - Prescription for increased labetalol not received at [facility] - Associated symptoms: - Reports baby is active - Stable blood sugars on metformin Care OB Visit Log OB Flowsheet Initial Weight: Not Recorded Date -?-?-?-?-?-?-?-?-?-?-?-?- EGA Weight BP Alb Glu CTX Pres Fundal ht FHR Mov Dilation Station Effacement Hx Notes Visit Note 03/29/25 -?-?-?-?-?-?-?-?-?-?-?-?- 32w 0d 132.619 kg 156/87 at 23 weeks and 2 days gestation, presents for transfer of care from Dr. Dixon. History of gestational diabetes mellitus and essential hypertension, currently on labetalol 200 mg TID and metformin BID. Reports good movement and denies symptoms suggestive of preeclampsia. Not checking blood sugars due to lack of glucometer. heart rate 145 bpm, anatomy survey normal. JACKIE 05/24/2025. History of deliveries at 37 weeks. Plan: Problem List: Gestational diabetes melli tus, essential hypertension, syphilis (treated), . Prescribe glucometer and instruct patien t to check blood glucose four times daily (fasting and 1 hour post-meals). Continue labetalol and metformin as directed. Schedule 24-hour urine collection next week to monitor for preeclampsia. Plan for delivery at 37?38 weeks unless blood pressure or glucose levels worsen. Arrange anesthesia consult and initiate monitoring. Follow up in one week. Routine counseling provided regarding labor signs, dietary guidance, and activity modifications. 04/09/25 -?-?-?-?-?-?-?-?-?-?-?-?- 33w 4d 131.655 kg 146/85 @34w, presents with HTN, GDM, MAS, and left pelvic pain. On labetalol 600mg/day with continued MAS; BP control suboptimal. Glucose well controlled on metformin (fasting 81?117, postprandial 109?150). Reports intermittent pelvic pain impairing mobility. No LOF/VB/CTX. FHT WNL. Hx of elevated urine protein and received steroids at 32w. Plan: Increase labetalol to 400mg BID, s end to hospital for LFTs, renal labs. Monitor for preeclampsia. Continue metformin. Instructions for L&D visit if pain persists. Anticipate delivery 36?37w, earlier if unstable. F/u in 1 week. 04/17/25 -?-?-?-?-?-?-?-?-?-?-?-?- 34w 5d 133.47 kg 159/88 G5 at 34w5d with chronic hypertension and gestational diabetes, presents with BP 159/88, significant unilateral foot swelling, and reported contractions. Reports good FM. Denies MAS/VC/epigastric pain. Previous evaluation ruled out preeclampsia (LFTs/LDH/platelets normal), though proteinuria was 600. Labs pending. Prescription for labetalol 800 mg was not received. Blood sugars stable on metformin. Plan: New prescription for labetalol 400 mg BID and initiate nifedipine at lunch. Follow up for BP check and labs; consider induction if BP remains elevated. Order hospital ultrasound to confirm position. Continue FM monitoring, preeclampsia precautions, and weekly visits. JACKIE Calculator Estimated Delivery Date Method Current WG Current Estimate 05/24/25 Ultrasound #1 34w 6d Other Estimates 05/24/25 LMP (Uncertain) 34w 6d Exam General General Appearance: alert, in no apparent distress and healthy appearing Head Head exam: atraumatic Neck Neck exam: Present normal inspection and trachea midline Chest Chest inspection: Present normal inspection and symmetric chest wall rise External exam: Present normal external exam; Absent tenderness Neuro Neurological exam: Present oriented X3 Psych Psychiatric exam: Present normal affect and normal mood Office Procedures OB Clinic LOC & Office Proc's Nursing/Assessment Patient Status: Established Patient OB Clinic Nursing Assessment: Medication Reconciliation, Update PMH in EMR and Vital Signs OB Clinic Coordination of Care: Education Complex Pt/Fam, Consent,records obtained, informed consent, Lab and Imaging orders, Results/Orders obtained and Staff clarify orders Special Needs: Heart tones Established Patient Charge Established Patient Point Assignment: 115 Established Patient Point Charge: EP Level 3 (80-115) Assessment & Plan Diagnosis / Problem List (1) Supervision of high risk , unspecified, third trimester: Status: Acute Plan Problem List - Chronic hypertension in - Gestational diabetes mellitus - Edema - Uterine contractions Assessment 34-year-old G5 at 34 weeks 5 days gestation with chronic hypertension and gestational diabetes, presenting with elevated blood pressure of 159/88 despite increased labetalol dosage to 800 mg daily. Patient reports significant swelling, particularly in one foot, and has experienced pain and contractions. Previous hospital evaluation ruled out pre-eclampsia, with normal liver enzymes, LDH, and platelets, but urine protein was elevated to 600. Blood sugars have been stable on metformin. activity is reported as normal, but position has not been assessed since 26 weeks gestation. Plan - Increase labetalol dosage; new prescription to be written today - Add nifedipine to medication regimen; to be taken at lunchtime - Take labetalol in the morning and night - Return on for blood pressure check - Order ultrasound at hospital to check baby's position - Run another set of labs for pre-eclampsia - If blood pressure remains high on , induction may be necessary 1. Progress Reviewed gestational age (34 weeks and 5 days), growth, and heart rate. Planned frequent visits (every 2 weeks until 36 weeks, then weekly). 2. Instructed patient to monitor movements and report decreases immediately. 3. Testing Counseled on routine third-trimester labs per guidelines. Discussed potential need for ultrasound or monitoring based on risk factors. 4. Preeclampsia Precaution Educated on preeclampsia signs: severe headache, vision changes, right upper qu adrant pain, sudden swelling. Advised urgent reporting of symptoms and discussed blood pressure monitoring if high risk. 5. Labor Precautions Reviewed labor signs: regular contractions, pelvic pressure, back pain, bleeding, or fluid leakage. Instructed to seek immediate care for these symptoms. 6. Lifestyle and Delivery Preparation Reinforced vitamins, nutrition, and safe activity. Discussed plan, pain management, and . Advised on labor preparation (e.g., hospital bag) and expectations. 7. Psychosocial Support Assessed emotional well-being and offered resources for mental health or parenting support.
== END 2025-04-17 14:31 | disposition home or self-care (01) ==
LOC: HODSOBC 13:42
PROVIDERS: PCP Obstetrics & Gynecology; Referring Provider Obstetrics & Gynecology; Supervising Provider Obstetrics & Gynecology; Visit Provider Obstetrics & Gynecology
DX: O09.523 Supervision of elderly multigravida, third trimester (principal); O09.893 Supervision of other high risk pregnancies, third trimester; O10.913 Unspecified pre-existing hypertension complicating pregnancy, third trimester; O24.415 Gestational diabetes mellitus in pregnancy, controlled by oral hypoglycemic drugs; O12.03 Gestational edema, third trimester; Z3A.34 34 weeks gestation of pregnancy; Z79.899 Other long term (current) drug therapy
CPT/HCPCS: 99213; G0463

== ENCOUNTER 2025-04-17 15:15 | Outpatient (CLI) | payer MEDICAID, SELFPAY ==
[2025-04-17] VITALS (28 sets, daily range): BP systolic 126–150; BP diastolic 59–73; PULSE 72–89; RESP 14–98; TEMP 37.1; O2SAT 96–99; BMI 52.2
--- NOTE | 2025-04-17 15:25 | XR_ITS ---
Examination: Complete OB ultrasound greater than 14 weeks Date and time of exam: April 17, 2025 1540 hours INDICATIONS: Diagnosis pre-existing hypertension Findings: Viable intrauterine single fetus with single amniotic sac presentation cephalic Cardiac motion 147 BPM. Placenta posterior grade 2. Umbilical cord insertion seen. Amniotic fluid index 15.9 cm. Cervix 4.0 cm Ovaries obscured by bowel gas. Composite estimated gestational age based on BPD, head circumference, abdominal circumference, femur length is 35 weeks 0 days Estimated weight 2543 g. Survey of intracranial anatomy, spinal anatomy, abdominal anatomy, four-chamber heart performed with no abnormalities identified. Impression: Viable intrauterine gestation cephalic presentation.
[2025-04-17 16:10] LABS: Basophils % (Auto) 0 % (0-2.5); Collection Type, Urine Clean Catch; Eosinophils # (Auto) 0.1 Thou/mm3 (0.0-0.5); Eosinophils % (Auto) 1 % (0-10); Hematocrit 32.4 % (36.0-46.0); Immature Granulocytes % (Auto) 0 % (0-0); Immature Granulocytes Auto 0.04 Thou/mm3 (0.00-0.00); Lymphocytes # (Auto) 1.5 Thou/mm3 (1.0-4.8); Lymphocytes % (Auto) 13 % (10-50); Mean Corpuscular Hemoglobin 26.1 pg (25.0-35.0); Mean Corpuscular Volume 77 fL (80-100); Monocytes # (Auto) 0.5 Thou/mm3 (0.0-0.8); Monocytes % (Auto) 5 % (0-12); Neutrophils # (Auto) 8.8 Thou/mm3 (1.8-7.7); Neutrophils % (Auto) 80 % (37-80); Nucleated Red Blood Cell % 0 /100 WBC (0); Platelet Count 222 Thou/mm3 (140-440); RDW Standard Deviation 39.3 fL (36.4-46.3); Red Blood Count 4.22 Miln/mm3 (4.00-5.20)
[2025-04-17 16:33] LABS: Alanine Aminotransferase 21 U/L (10-49); Albumin, Serum 3.7 gm/dL (3.5-5.0); Albumin/Globulin Ratio 1.5 (1.2-2.2); Alkaline Phosphatase 129 U/L (46-116); Anion Gap 12 (7-16); Aspartate Amino Transferase 25 U/L (0-34); BUN/Creatinine Ratio 15 Ratio (12-20); Bilirubin,Total 0.3 mg/dL (0.3-1.2); Blood Urea Nitrogen 6 mg/dL (9-23); Calcium 9.5 mg/dL (8.3-10.6); Calcium (Corrected) 9.7 mg/dL (8.5-10.1); Carbon Dioxide 21.8 mMol/L (20.0-31.0); Chloride 106 mMol/L (98-107); Creatinine (Component) 0.4 mg/dL (0.6-1.3); Estimated Creatinine Clearance 263.1 mL/min (>60); Globulin 2.5 gm/dL (2.3-3.5); Glucose 85 mg/dL (74-106); LDH (Lactate Dehydrogenase) 205 U/L (120-246); Osmolality,Calculated 276 (275-295); Potassium 4.1 mMol/L (3.4-5.1); Sodium 140 mMol/L (136-145); Total Protein 6.2 gm/dL (5.7-8.2); eGFR > 60 See Note
[2025-04-17 16:35] LABS: INR 0.9 (0.9-1.3); Partial Thromboplastin Time 21.9 Seconds (22.0-36.0); Prothrombin Time 10.3 Seconds (9.0-12.2)
[2025-04-17 16:47] LABS: Bilirubin,Urine Negative (Negative); Blood,Urine Negative (Negative); Clarity,Urine Clear (Clear/Hazy); Color,Urine Yellow (Lt Yel-Yel); Fibrinogen 650 mg/dL (175-375); Glucose, Urine Negative (Negative); Ketones,Urine Negative (Negative); Leukocyte Esterase,Urine Negative (Negative); Nitrite,Urine Negative (Negative); PH,Urine 5.5 (5.0-7.0); Protein,Urine Negative (Neg - Trace); RBC,Urine 3 /hpf (0-3); Specific Gravity,Urine 1.022 (1.001-1.035); Squamous Epithelial Cell,Urine 3 /hpf (0-5); Urobilinogen,Urine Negative mg/dL (0.0-1.0); WBC,Urine 2 /hpf (0-5)
[2025-04-17 16:55] LABS: Creatinine,Random Urine 95 mg/dL (30-125); Protein Total, Random Urine 24 mg/dL (1-14)
== END 2025-04-17 17:39 | disposition home or self-care (01) ==
LOC: S4S1 15:16 → S4SX 15:16
PROVIDERS: Referring Provider Obstetrics & Gynecology; Visit Provider Obstetrics & Gynecology
DX: O26.893 Other specified pregnancy related conditions, third trimester (principal); Z3A.34 34 weeks gestation of pregnancy; R03.0 Elevated blood-pressure reading, without diagnosis of hypertension
CPT/HCPCS: 36415; 59025; 76805; 80053; 81001; 82570; 83615; 84156; 84550; 85025; 85384; 85610; 85730

== ENCOUNTER 2025-04-20 13:42 | Outpatient (AMB) | payer MEDICAID, SELFPAY ==
--- NOTE | 2025-04-20 13:55 | OBCLNT_ITS ---
Vital Signs 04/20/25 13:56 Height 1.57 m Height Method Stated Weight 132.959 kg Weight Measurement Method Standing Scale BMI 53.9 BP 157/84 H Blood Pressure Source Automatic Cuff Blood Pressure Location Right Upper Arm Position Sitting Respiration 18 Pulse 86 Pulse Source Monitor Temp 97.5 F Temp Source Temporal Artery Scan Pulse Oximetry (%) 96 Oxygen Delivery Method Room Air Allergies/Home Meds Allergies & Medications Allergies No Known Allergies Allergy (Verified 04/17/25 15:37) Medication Reconciliation vitamins no.144-folic acid 400 mcg chewable tablet () 1 mcg PO QDAY #20 tabs 07/06/19 [Rx Confirmed 04/20/25] labetalol 200 mg tablet 200 mg PO TID 03/24/25 [History Confirmed 04/20/25] metformin 500 mg tablet 500 mg PO BID 03/24/25 [History Confirmed 04/20/25] blood sugar diagnostic (Blood Glucose Test strips) #10 ea 03/29/25 [Rx Confirmed 04/20/25] blood-glucose meter #1 ea 03/29/25 [Rx Confirmed 04/20/25] lancets #100 ea 03/29/25 [Rx Confirmed 04/20/25] labetalol 400 mg tablet 400 mg PO BID 30 days #60 tabs 04/17/25 [Rx Confirmed 04/20/25] nifedipine 60 mg tablet,extended release 60 mg PO QDAY 30 days #30 tabs 04/17/25 [Rx Confirmed 04/20/25] nifedipine 60 mg tablet,extended release 60 mg PO QDAY 30 days #30 tabs 04/17/25 [Rx Confirmed 04/20/25] Intake Visit Data Collection New Patient or Established: Established Patient (seen at [facility] within 3 years) Reason for Visit:: OBC Seen by Clinical Staff ONLY (RN/MA): No 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 1. Little interest or pleasure in doing things: not at all 2. Feeling down, depressed, or hopeless: not at all Total score: 0 PHQ-9 3. Trouble falling or staying asleep, or sleeping too much: Not at all 4. Feeling tired or having little energy: Not at all 5. Poor appetite or overeating: Not at all 6. Feeling bad about yourself - or that you are a failure or have let yourself or your family down: Not at all 7. Trouble concentrating on things, such as reading the newspaper or watching television: Not at all 8. Moving or speaking so slowly that other people could have noticed? - Or the opposite - being so fidgety or restless that you have been moving around a lot more than usual: not at all 9. Thoughts that you would be better off or of hurting yourself in some way: Not at all Total score: 0 If you checked off any problems, how difficult have these problems made it for you to do your work, take care of things at home, or get along with other people?: not difficult at all Source: Developed by Drs. Abdulkadir Almonte, Patricia Kirk, Aurelio Clemons and colleagues, with an educational yue from [employer]. 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 No contractions, LOF, VB and reports good FM. Reports persistent headache unrelieved by Tylenol. Denies VC, and epigastric pain. - Grisel Ortega is a 34-year-old female at 35 weeks and 1 day gestation presenting for blood pressure check. - Current blood pressure is 157/84 mmHg - Improved from previous severe range blood pressures - Still difficult to control - Patient reports persistent headache - Not relieved by Tylenol - Taking prescribed medications: - Labetalol 400 mg twice daily - Nifedipine 60 mg once daily - Scheduled for induction of labor on April 29, 2025 at 36 weeks and 2 days gestation - All previous deliveries were vaginal - Patient monitoring blood pressure at home - Instructed to go to hospital if any reading over 160 mmHg - Reports experiencing right-sided abdominal pain, nausea, and swelling in hands and feet Care OB Visit Log OB Flowsheet Initial Weight: Not Recorded Date -?-?-?-?-?-?-?-?-?-?-?-?- EGA Weight BP Alb Glu CTX Pres Fundal ht FHR Mov Dilation Station Effacement Hx Notes Visit Note 03/29/25 -?-?-?-?-?-?-?-?-?-?-?-?- 32w 0d 132.619 kg 156/87 at 23 weeks and 2 days gestation, presents for transfer of care from Dr. Dixon. History of gestational diabetes mellitus and essential hypertension, currently on labetalol 200 mg TID and metformin BID. Reports good movement and denies symptoms suggestive of preeclampsia. Not checking blood sugars due to lack of glucometer. heart rate 145 bpm, anatomy survey normal. JACKIE 05/24/2025. History of deliveries at 37 weeks. Plan: Problem List: Gestational diabetes melli tus, essential hypertension, syphilis (treated), . Prescribe glucometer and instruct patien t to check blood glucose four times daily (fasting and 1 hour post-meals). Continue labetalol and metformin as directed. Schedule 24-hour urine collection next week to monitor for preeclampsia. Plan for delivery at 37?38 weeks unless blood pressure or glucose levels worsen. Arrange anesthesia consult and initiate monitoring. Follow up in one week. Routine counseling provided regarding labor signs, dietary guidance, and activity modifications. 04/04/25 -?-?-?-?-?-?-?-?-?-?-?-?- 32w 6d 132.619 kg 143/84 at 32w6d, transferred in third trimester. History of gestational diabetes, chronic/gestational hypertension, prior , and treated syphilis. On labetalol and metformin; adherent to diet and medications. Reports good FM, no contractions, LOF, VB, MAS, VC, or epigastric pain. Glucose readings reviewed: 84?196 mg/dL, overall stable. BP reported as well controlled; FHT 148?150 bpm. Concerned about possible early delivery based on history. Plan: Continue labetalol and metformin, with metformin taken BID near meals. Maintain glucose and BP logs. Await call to begin NSTs twice weekly. Schedule ultrasound at 36 weeks. Follow up in 1 week. Anticipate delivery around 37?38 weeks pending control. Routine precautions and education reviewed. 04/09/25 -?-?-?-?-?-?-?-?-?-?-?-?- 33w 4d 131.655 kg 146/85 @34w, presents with HTN, GDM, MAS, and left pelvic pain. On labetalol 600mg/day with continued MAS; BP control suboptimal. Glucose well controlled on metformin (fasting 81?117, postprandial 109?150). Reports intermittent pelvic pain impairing mobility. No LOF/VB/CTX. FHT WNL. Hx of elevated urine protein and received steroids at 32w. Plan: Increase labetalol to 400mg BID, s end to hospital for LFTs, renal labs. Monitor for preeclampsia. Continue metformin. Instructions for L&D visit if pain persists. Anticipate delivery 36?37w, earlier if unstable. F/u in 1 week. 04/17/25 -?-?-?-?-?-?-?--?-?-?-?-?- 34w 5d 133.47 kg 159/88 G5 at 34w5d with chronic hypertension and gestational diabetes, presents with BP 159/88, significant unilateral foot swelling, and reported contractions. Reports good FM. Denies MAS/VC/epigastric pain. Previous evaluation ruled out preeclampsia (LFTs/LDH/platelets normal), though proteinuria was 600. Labs pending. Prescription for labetalol 800 mg was not received. Blood sugars stable on metformin. Plan: New prescription for labetalol 400 mg BID and initiate nifedipine at lunch. Follow up for BP check and labs; consider induction if BP remains elevated. Order hospital ultrasound to confirm position. Continue FM monitoring, preeclampsia precautions, and weekly visits. JACKIE Calculator Estimated Delivery Date Method Current WG Current Estimate 07/24/25 Ultrasound #1 35w 1d Other Estimates 05/24/25 LMP (Uncertain) 35w 1d Exam General General Appearance: alert, in no apparent distress and healthy appearing Head Head exam: atraumatic Neck Neck exam: Present normal inspection and trachea midline Chest Chest inspection: Present normal inspection and symmetric chest wall rise External exam: Present normal external exam; Absent tenderness Neuro Neurological exam: Present oriented X3 Psych Psychiatric exam: Present normal affect and normal mood Office Procedures OB Clinic LOC & Office Proc's Nursing/Assessment Patient Status: Established Patient OB Clinic Nursing Assessment: Medication Reconciliation, Update PMH in EMR and Vital Signs OB Clinic Coordination of Care: Complex Care and Chronic Disease 1-5, Consent,records obtained, informed consent, Education Simp Pt/Fam and Staff clarify orders Special Needs: Heart tones Established Patient Charge Established Patient Point Assignment: 115 Established Patient Point Charge: EP Level 3 (80-115) Assessment & Plan Diagnosis / Problem List (1) Gestational hypertension: Status: Acute (2) Supervision of high risk , unspecified, third trimester: Status: Acute Plan Problem List - Gestational hypertension - Headache Assessment 34-year-old female at 35 weeks and 1 day gestation presenting with chronic hypertension, currently on labetalol 400mg BID and nifedipine 60mg daily. Blood pressure today is 157/84, improved from previous severe range but still difficult to control. Patient reports persistent headache unrelieved by Tylenol. Recent labs were performed 2 days ago. Patient is scheduled for induction of labor at 36 weeks and 2 days due to hypertension. Previous deliveries were vaginal. Patient is monitoring blood pressure at home and has been instructed on warning signs for preeclampsia. Plan - Patient to go to the hospital immediately for workup due to persistent headache - Dr. Spear to call Dr. Kulkarni to inform about the patient's condition - If sent home, patient to monitor blood pressure and return to hospital if any reading is over 160 - If kept in hospital, potential induction today - If sent home, scheduled induction on 04/29/2025 at 36 weeks and 2 days - Patient to call the unit at 8:00 AM on 04/29/2025 if sent home and induction proceeds as scheduled - No further appointments to be made at this clinic 1. Progress Reviewed gestational age, growth, and heart rate. Planned frequent visits (every 2 weeks until 36 weeks, then weekly). 2. Instructed patient to monitor movements and report decreases immediately. 3. Testing Counseled on routine third-trimester labs per guidelines. Discussed potential need for ultrasound or monitoring based on risk factors. 4. Preeclampsia Precaution Educated on preeclampsia signs: severe headache, vision changes, right upper quadrant pain, sudden swelling. Advised urgent reporting of symptoms and discussed blood pressure monitoring if high risk. 5. Labor Precautions Reviewed labor signs: regular contractions, pelvic pressure, back pain, bleeding, or fluid leakage. Instructed to seek immediate care for these symptoms. 6. Lifestyle and Delivery Preparation Reinforced vitamins, nutrition, and safe activity. Discussed plan, pain management, and . Advised on labor preparation (e.g., hospital bag) and expectations. 7. Psychosocial Support Assessed emotional well-being and offered resources for mental health or parenting support.
[2025-04-20 13:56] VITALS: BP 157/84; PULSE 86; RESP 18; TEMP 36.4; O2SAT 96; BMI 53.9
== END 2025-04-20 14:29 | disposition home or self-care (01) ==
LOC: HODSOBC 13:42
PROVIDERS: PCP Physician Assistant; Referring Provider Physician Assistant; Supervising Provider Obstetrics & Gynecology; Visit Provider Obstetrics & Gynecology
DX: O09.893 Supervision of other high risk pregnancies, third trimester (principal); O13.3 Gestational [pregnancy-induced] hypertension without significant proteinuria, third trimester; Z3A.35 35 weeks gestation of pregnancy
CPT/HCPCS: 99213; G0463

== ENCOUNTER 2025-04-20 15:50 | Observation (INO) | payer MEDICAID, SELFPAY ==
[2025-04-20] VITALS (57 sets, daily range): BP systolic 130–168; BP diastolic 58–79; PULSE 63–84; RESP 18–98; TEMP 36.8; O2SAT 97–99; BMI 53.5
[2025-04-20] MEDS: CYPROHEPTADINE HCL 4 MG TABLET 8 MG PO (18:58)
[2025-04-20 19:25] LABS: Basophils % (Auto) 0 % (0-2.5); Eosinophils # (Auto) 0.1 Thou/mm3 (0.0-0.5); Eosinophils % (Auto) 1 % (0-10); Hematocrit 33.7 % (36.0-46.0); Hemoglobin 11.1 g/dL (12.0-16.0); Immature Granulocytes % (Auto) 0 % (0-0); Immature Granulocytes Auto 0.04 Thou/mm3 (0.00-0.00); Lymphocytes # (Auto) 1.5 Thou/mm3 (1.0-4.8); Lymphocytes % (Auto) 15 % (10-50); Mean Corpuscular HGB Conc 32.9 g/dl (31.0-37.0); Mean Corpuscular Hemoglobin 26.2 pg (25.0-35.0); Mean Corpuscular Volume 80 fL (80-100); Monocytes # (Auto) 0.6 Thou/mm3 (0.0-0.8); Monocytes % (Auto) 6 % (0-12); Neutrophils # (Auto) 7.6 Thou/mm3 (1.8-7.7); Neutrophils % (Auto) 77 % (37-80); Nucleated Red Blood Cell % 0 /100 WBC (0); Platelet Count 263 Thou/mm3 (140-440); RDW Standard Deviation 41.4 fL (36.4-46.3); Red Blood Count 4.23 Miln/mm3 (4.00-5.20); White Blood Count 9.9 Thou/mm3 (3.6-11.0)
[2025-04-20 19:43] LABS: Creatinine,Random Urine > 245 mg/dL (30-125); Protein Total, Random Urine 52 mg/dL (1-14)
[2025-04-20 19:45] LABS: Alanine Aminotransferase 20 U/L (10-49); Albumin, Serum 3.6 gm/dL (3.5-5.0); Albumin/Globulin Ratio 1.4 (1.2-2.2); Alkaline Phosphatase 130 U/L (46-116); Anion Gap 8 (7-16); Aspartate Amino Transferase 20 U/L (0-34); BUN/Creatinine Ratio 14 Ratio (12-20); Bilirubin,Total 0.4 mg/dL (0.3-1.2); Blood Urea Nitrogen 7 mg/dL (9-23); Calcium 9.5 mg/dL (8.3-10.6); Calcium (Corrected) 9.8 mg/dL (8.5-10.1); Carbon Dioxide 22.3 mMol/L (20.0-31.0); Chloride 109 mMol/L (98-107); Creatinine (Component) 0.5 mg/dL (0.6-1.3); Estimated Creatinine Clearance 206.2 mL/min (>60); Globulin 2.5 gm/dL (2.3-3.5); Glucose 78 mg/dL (74-106); Osmolality,Calculated 274 (275-295); Sodium 139 mMol/L (136-145); Total Protein 6.1 gm/dL (5.7-8.2); eGFR > 60 See Note
[2025-04-20] MEDS: LABETALOL 100 MG TABLET 400 MG PO (20:15)
[2025-04-20] MEDS: metFORMIN 500 MG TABLET PO (20:17)
[2025-04-20] MEDS: RINGERS LACTATED 1000 ML 1,000 ML 100 ML IV (22:07)
[2025-04-20] MEDS: ACETAMINOPHEN IVPB 1,000 MG/100 ML VIAL 250 MG IV (22:07)
[2025-04-20] MEDS: RINGERS LACTATED 1000 ML 1,000 ML 999 ML IV (23:20)
--- NOTE | 2025-04-20 23:25 | PD.LDPN ---
Documentation for date of: 04/20/25 OB Labor Progress Note Pelvic Exam Amniotic membrane status: Intact Contractions Monitor mode: External Contraction frequency: Occasional Contraction intensity: Mild Status status: Category l Assessment and Plan Comments: Grisel is a 34yo with SIUP at 35&1wk presenting to L&D from clinic for PIH workup as she endorsed persistent headache. BP in office 157/84. History significant for CHTN for which she currently takes labetalol 400mg PO BID and nifedipine 60mg XL QD. She also has A2GDM treated with metformin. Current BMI 53.5. Transfer to [facility] OB clinic from Dr. Dixon at 32wk. History of 5 prior vaginal deliveries. Youngest child is 5yo. She has had close monitoring for the above issues, bp has been tricky to manage over the last few weeks. MAS is rated 8/10. She notes not having much water intake today. She took tylenol 1000mg PO approx 2hr before arrival to L&D triage. Last ate around 1500. She denies vision changes and RUQ pain. She notes no painful/regular ctx, no vaginal bleeding, no lof. Normal movement. ROS negative other than what was described above. Vitals wnl, afebrile General: well developed, well nourished, no acute distress, conversant Cardiac: normal heart rate Lungs: breathing without distress Abdomen: soft, gravid, non-tender, no rebound or guarding Extremities: no pain with palpation of calves NST: Reactive, +accels, no decels, mod rashid Arnold Line: no regular ctx pattern (occasional ctx) Labs: Hgb 11.1 Plt 263 serum creat 0.5 AST/ALT wnl urine prot:creat 0.21 (Reviewed last labs done on 04/17 which are similar to today. Uric acid 04/17 was normal) Assessment: Grisel is a 34yo with SIUP at 35&1wk with CHTN on labetalol and nifedipine, A2GDM on metformin and severe obesity having headache. BPs mostly mild range over an extended period of monitoring this evening (occasional normotensive, there were a few severe range 160's systolic when she went past the time when she normally takes her evening labetalol- after receiving the PO labetalol those completely resolved). PIH labs are all normal, including urine prot:creat 0.21. Benign exam. Reassuring status. We trialed periactin 8mg PO x1 with not much relief of headache, but then IV was placed and 1 hour after receiving IV tylenol her MAS went from an 8/10 to 5/10. Patient was quite stressed thinking that she may have delivery today and not knowing delivery mode, but after a thorough conversation, she feels less stressed. Plan: -Discussed findings and provided reassurance, answered all questions to patient's apparent satisfaction -Will continue to observe overnight. Since patient endorses not having had much to drink today, will give LR 1L IV bolus now and then continue on maintenance IVF to try to resolve MAS since there are no other concerning findings present that would necessitate delivery at 35wk gestation. However, if MAS doesn't resolve by morning, would initiate IV MgSO4 and proceed with delivery, likely IOL if patient amenable. Discussed option for section. -Will continue to closely monitor Alysa Kulkarni MD
[2025-04-21] VITALS (11 sets, daily range): BP systolic 123–150; BP diastolic 58–100; PULSE 67–80; RESP 14–15; TEMP 36.8–36.9
== END 2025-04-21 04:55 | disposition home or self-care (01) ==
PROVIDERS: Admitting Provider Obstetrics & Gynecology; Visit Provider Obstetrics & Gynecology
DX: O10.913 Unspecified pre-existing hypertension complicating pregnancy, third trimester (principal); O26.893 Other specified pregnancy related conditions, third trimester; Z3A.35 35 weeks gestation of pregnancy; R51.9 Headache, unspecified; O24.415 Gestational diabetes mellitus in pregnancy, controlled by oral hypoglycemic drugs; O99.213 Obesity complicating pregnancy, third trimester; E66.9 Obesity, unspecified
CPT/HCPCS: 36415; 59025; 59899; 80053; 82570; 82575; 84156; 85025; G0378; J0131; J7120; A9270

== ENCOUNTER 2025-04-24 15:28 | Outpatient (CLI) | payer MEDICAID, SELFPAY ==
[2025-04-24 15:46] VITALS: BP 152/67; PULSE 70
[2025-04-24 15:47] VITALS: BP 152/67; PULSE 70; RESP 18; RESP 99; TEMP 36.9; BMI 54.5
== END 2025-04-24 16:25 | disposition home or self-care (01) ==
LOC: S4S1 15:30 → S4SX 15:33
PROVIDERS: Referring Provider Obstetrics & Gynecology; Visit Provider Obstetrics & Gynecology
DX: Z34.83 Encounter for supervision of other normal pregnancy, third trimester (principal); Z36.9 Encounter for antenatal screening, unspecified; Z3A.35 35 weeks gestation of pregnancy
CPT/HCPCS: 59025

== ENCOUNTER 2025-04-25 11:19 | Outpatient (AMB) | payer MEDICAID, SELFPAY ==
--- NOTE | 2025-04-25 11:27 | AMB.OBVISIT ---
Vital Signs 04/25/25 11:28 Height 1.57 m Height Method Stated Weight 134.83 kg Weight Measurement Method Standing Scale BMI 54.7 BP 133/81 H Blood Pressure Source Automatic Cuff Blood Pressure Location Right Upper Arm Position Sitting Pulse 83 Pulse Source Monitor Temp 97.3 F Temp Source Temporal Artery Scan Pulse Oximetry (%) 97 Oxygen Delivery Method Room Air Allergies/Home Meds Allergies & Medications Allergies No Known Allergies Allergy (Verified 04/26/25 18:58) Medication Reconciliation vitamins no.144-folic acid 400 mcg chewable tablet () 1 mcg PO QDAY #20 tabs 07/06/19 [Rx Confirmed 04/25/25] labetalol 200 mg tablet 200 mg PO TID 03/24/25 [History Confirmed 04/25/25] Held on 04/20/25. Instructions: Order Change metformin 500 mg tablet 500 mg PO BID 03/24/25 [History Confirmed 04/26/25] blood sugar diagnostic (Blood Glucose Test strips) #10 ea 03/29/25 [Rx Confirmed 04/25/25] blood-glucose meter #1 ea 03/29/25 [Rx Confirmed 04/25/25] lancets #100 ea 03/29/25 [Rx Confirmed 04/25/25] labetalol 400 mg tablet 400 mg PO BID 30 days #60 tabs 04/17/25 [Rx Confirmed 04/26/25] nifedipine 60 mg tablet,extended release 60 mg PO QDAY 30 days #30 tabs 04/17/25 [Rx Confirmed 04/25/25] nifedipine 60 mg tablet,extended release 60 mg PO QDAY 30 days #30 tabs 04/17/25 [Rx Confirmed 04/25/25] Intake Visit Data Collection New Patient or Established: Established Patient (seen at [facility] within 3 years) Reason for Visit:: OBC Seen by Clinical Staff ONLY (RN/MA): No Flavorings Compounder Required: No Do You Feel Safe at Home: Yes Authorities Contacted: N/A PCP or OBGYN visit in last 3 months: Yes Date of Last PCP or OBGYN visit: 04/24/25 Hx Now: Yes Are you currently on any form of Control: No Pain Present Currently: No Pain Scale Used: Cheney-Nuñez/Numerical Pain scale:: 0 Smoking Status Smoking Status: Never smoker Questionnaires Covid-19 Vaccine Questionnaire Has patient been vacinated for Covid-19 Have you been vacinated for Covid-19: No PHQ-9 PHQ-2 Over the last 2 weeks, how often have you been bothered by any of the following problems? 1. Little interest or pleasure in doing things: not at all 2. Feeling down, depressed, or hopeless: not at all Total score: 0 PHQ-9 3. Trouble falling or staying asleep, or sleeping too much: Not at all 4. Feeling tired or having little energy: Not at all 5. Poor appetite or overeating: Not at all 6. Feeling bad about yourself - or that you are a failure or have let yourself or your family down: Not at all 7. Trouble concentrating on things, such as reading the newspaper or watching television: Not at all 8. Moving or speaking so slowly that other people could have noticed? - Or the opposite - being so fidgety or restless that you have been moving around a lot more than usual: not at all 9. Thoughts that you would be better off or of hurting yourself in some way: Not at all Total score: 0 If you checked off any problems, how difficult have these problems made it for you to do your work, take care of things at home, or get along with other people?: not difficult at all Source: Developed by Drs. Abdulkadir Almonte, Patricia Kirk, Aurelio Clemons and colleagues, with an educational yue from [facility]. Depression screen completed yes Social History Living Situation History Marital Status: Lives With: Family Housing: House Tobacco History Smoking Status: Never smoker Second Hand Smoke Exposure: No Alcohol History Alcohol Intake: Never Domestic Abuse History Do You Feel Safe at Home: Yes PRIMARY CARE PROVIDER: Past Medical History Past Medical History: No Hx Cardiac Disorders, No Hx Renal Disease, No Hx Diabetes Mellitus Type 1 and No Hx Diabetes Mellitus Type 2 History of Present Illness HPI Narrative Grisel Ortega, , presents for routine visit at 35 weeks and 6 days gestation. No contractions, LOF, VB and reports good FM. Denies MAS, VC, and epigastric pain. - Grisel Ortega is a 34-year-old female, , at 35 weeks and 6 days gestation, presenting for a routine visit with concerns about blood pressure control. - Current blood pressure medications: - Labetalol 400 mg BID - Nifedipine 60 mg ER (Procardia) three times daily - Blood pressure readings: - Recent range: 150s/60s-80s - Today's reading reported as good - Frequent monitoring: - Seen every 3 days due to blood pressure concerns - At threshold for preeclampsia diagnosis - Symptoms and concerns: - Denies current symptoms of preeclampsia (headache, right-sided stomach pain, reduced movement, bleeding, or leaking) - Reports low pain tolerance - Delivery planning: - Considering due to blood pressure concerns - Scheduled for induction on Wednesday (in 3 days) - NST planned for tomorrow - Additional visits scheduled for Wednesday and Wednesday - Other medical conditions: - Hyperlipidemia Review of Systems Review of Systems Systems Reviewed: All systems reviewed, normal except as documented Care OB Visit Log OB Flowsheet Initial Weight: Not Recorded Date <del>?</del> EGA Weight BP Alb Glu CTX Pres Fundal ht FHR Mov Dilation Station Effacement Hx Notes Visit Note 03/29/25 <del>?</del> 32w 0d 132.619 kg 156/87 at 23 weeks and 2 days gestation, presents for transfer of care from Dr. Dixon. History of gestational diabetes mellitus and essential hypertension, currently on labetalol 200 mg TID and metformin BID. Reports good movement and denies symptoms suggestive of preeclampsia. Not checking blood sugars due to lack of glucometer. heart rate 145 bpm, anatomy survey normal. JACKIE 05/24/2025. History of deliveries at 37 weeks. Plan: Problem List: Gestational diabetes mellitus, essential hypertension, syphilis (treated), . Prescribe glucometer and instruct patient to check blood glucose four times daily (fasting and 1 hour post-meals). Continue labetalol and metformin as directed. Schedule 24-hour urine collection next week to monitor for preeclampsia. Plan for delivery at 37?38 weeks unless blood pressure or glucose levels worsen. Arrange anesthesia consult and initiate monitoring. Follow up in one week. Routine counseling provided regarding labor signs, dietary guidance, and activity modifications. 04/04/25 <del>?</del> 32w 6d 132.619 kg 143/84 at 32w6d, transferred in third trimester. History of gestational diabetes, chronic/gestational hypertension, prior , and treated syphilis. On labetalol and metformin; adherent to diet and medications. Reports good FM, no contractions, LOF, VB, MAS, VC, or epigastric pain. Glucose readings reviewed: 84?196 mg/dL, overall stable. BP reported as well controlled; FHT 148?150 bpm. Concerned about possible early delivery based on history. Plan: Continue labetalol and metformin, with metformin taken BID near meals. Maintain glucose and BP logs. Await call to begin NSTs twice weekly. Schedule ultrasound at 36 weeks. Follow up in 1 week. Anticipate delivery around 37?38 weeks pending control. Routine precautions and education reviewed. 04/09/25 <del>?</del> 33w 4d 131.655 kg 146/85 @34w, presents with HTN, GDM, MAS, and left pelvic pain. On labetalol 600mg/day with continued MAS; BP control suboptimal. Glucose well controlled on metformin (fasting 81?117, postprandial 109?150). Reports intermittent pelvic pain impairing mobility. No LOF/VB/CTX. FHT WNL. Hx of elevated urine protein and received steroids at 32w. Plan: Increase labetalol to 400mg BID, send to hospital for LFTs, renal labs. Monitor for preeclampsia. Continue metformin. Instructions for L&D visit if pain persists. Anticipate delivery 36?37w, earlier if unstable. F/u in 1 week. 04/17/25 <del>?</del> 34w 5d 133.47 kg 159/88 G5 at 34w5d with chronic hypertension and gestational diabetes, presents with BP 159/88, significant unilateral foot swelling, and reported contractions. Reports good FM. Denies MAS/VC/epigastric pain. Previous evaluation ruled out preeclampsia (LFTs/LDH/platelets normal), though proteinuria was 600. Labs pending. Prescription for labetalol 800 mg was not received. Blood sugars stable on metformin. Plan: New prescription for labetalol 400 mg BID and initiate nifedipine at lunch. Follow up for BP check and labs; consider induction if BP remains elevated. Order hospital ultrasound to confirm position. Continue FM monitoring, preeclampsia precautions, and weekly visits. 04/25/25 <del>?</del> 35w 6d 134.83 kg 133/81 occasional cephalic 40 145 active Reports good movement, no contractions. On labetalol 400mg BID and nifedipine 60mg TID for hypertension; recent BPs in 150s/60s?80s. No current symptoms of preeclampsia but at diagnostic threshold, seen every 3 days. Induction scheduled in 3 days, NST planned for tomorrow. Hyperlipidemia also noted. Plan: Proceed with scheduled induction, NST tomorrow, continue current meds, consider if BP worsens or labor does not progress, salt restriction advised, follow-up visits Wednesday and Wednesday, next appointment will be at hospital. JACKIE Calculator Estimated Delivery Date Method Current WG Current Estimate 05/24/25 Ultrasound #1 36w 1d Other Estimates 05/24/25 LMP (Uncertain) 36w 1d Exam General General Appearance: alert, in no apparent distress and healthy appearing Head Head exam: atraumatic Neck Neck exam: Present normal inspection and trachea midline Chest Chest inspection: Present normal inspection and symmetric chest wall rise External exam: Present normal external exam; Absent tenderness Neuro Neurological exam: Present oriented X3 Psych Psychiatric exam: Present normal affect and normal mood Office Procedures OB Clinic LOC & Office Proc's Nursing/Assessment Patient Status: Established Patient OB Clinic Nursing Assessment: Medication Reconciliation, Update PMH in EMR and Vital Signs OB Clinic Coordination of Care: Complex Care and Chronic Disease 1-5, Consent,records obtained, informed consent, Education Simp Pt/Fam and Staff clarify orders Special Needs: Heart tones Established Patient Charge Established Patient Point Assignment: 115 Established Patient Point Charge: EP Level 3 (80-115) Assessment & Plan Diagnosis / Problem List (1) Gestational hypertension: Status: Acute (2) Supervision of high risk , unspecified, third trimester: Status: Acute Plan Problem List - Gestational hypertension - Hyperlipidemia - Preeclampsia (at threshold) - , high-risk Assessment 34-year-old at 35 weeks and 6 days gestation presenting for routine visit. Patient has chronic hypertension managed with labetalol 400 mg BID and nifedipine 60 mg ER, with blood pressures in the 150s/60s-80s range. Patient is at risk for preeclampsia and requires close monitoring. Hyperlipidemia is also noted. status appears stable, with NST scheduled for tomorrow. Patient reports low pain tolerance. Induction of labor is planned for Wednesday, with potential for if labor does not progress or if blood pressure increases significantly. Plan - Proceed with induction scheduled for Wednesday - Perform NST tomorrow - Follow-up visits scheduled for Wednesday and Wednesday - Monitor for potential if labor does not progress or blood pressure increases - Continue current medications: labetalol 400 mg BID and nifedipine 60 mg ER - Patient instructed to swab vaginal entrance and leave sample - Patient advised to come to hospital if experiencing bad headache, reduced movement, bleeding, leaking, or right-sided stomach pain - Patient advised to watch salt intake - Next appointment will be at the hospital 1. Progress Reviewed gestational age, growth, and heart rate. Planned frequent visits (every 3 days). 2. Instructed patient to monitor movements and report decreases immediately. 3. Testing Counseled on routine third-trimester labs per guidelines. Discussed potential need for ultrasound or monitoring based on risk factors. 4. Preeclampsia Precaution Educated on preeclampsia signs: severe headache, vision changes, right upper quadrant pain, sudden swelling. Advised urgent reporting of symptoms and discussed blood pressure monitoring if high risk. 5. Labor Precautions Reviewed labor signs: regular contractions, pelvic pressure, back pain, bleeding, or fluid leakage. Instructed to seek immediate care for these symptoms. 6. Lifestyle and Delivery Preparation Reinforced vitamins, nutrition, and safe activity. Discussed plan, pain management, and . Advised on labor preparation (e.g., hospital bag) and expectations. 7. Psychosocial Support Assessed emotional well-being and offered resources for mental health or parenting support.
[2025-04-25 11:28] VITALS: BP 133/81; PULSE 83; TEMP 36.3; O2SAT 97; BMI 54.7
== END 2025-04-25 11:53 | disposition home or self-care (01) ==
LOC: HODSOBC 11:19
PROVIDERS: Supervising Provider Obstetrics & Gynecology; Visit Provider Obstetrics & Gynecology
DX: O09.523 Supervision of elderly multigravida, third trimester (principal); O09.43 Supervision of pregnancy with grand multiparity, third trimester; O09.893 Supervision of other high risk pregnancies, third trimester; O10.913 Unspecified pre-existing hypertension complicating pregnancy, third trimester; O99.283 Endocrine, nutritional and metabolic diseases complicating pregnancy, third trimester; Z3A.35 35 weeks gestation of pregnancy; E78.5 Hyperlipidemia, unspecified
CPT/HCPCS: 99213; G0463

== ENCOUNTER 2025-04-26 16:10 | Outpatient (CLI) | payer MEDICAID, SELFPAY ==
[2025-04-26 16:10] VITALS: BP 103/60; PULSE 100; RESP 16; RESP 99; TEMP 36.9
--- NOTE | 2025-04-26 16:23 | XR_ITS ---
Examination: Biophysical profile, ultrasound Date and time of exam: April 26, 2025, 1626 hours INDICATIONS: Diagnosis gestational hypertension, diagnosis maternal obesity, pelvic pressure noticed beginning 2 days ago. Technique: Multiple transabdominal sonographic images of the pelvis abdomen obtained. Attention is directed to the breathing movement, gross body movement, amniotic fluid volume and tone. Findings: Amniotic fluid index 11.8 cm Total biophysical profile is 8 of 8. breathing movement is 2. Gross body movement is 2. tone is 2. Qualitative amniotic fluid volume is 2 Impression: Biophysical profile is 8 of 8.
[2025-04-26 16:41] VITALS: BMI 53.6
[2025-04-26 16:59] VITALS: BP 130/60; PULSE 77
[2025-04-26 17:14] VITALS: BP 132/62; PULSE 70
[2025-04-26 17:29] VITALS: BP 126/60; PULSE 67
== END 2025-04-26 18:10 | disposition home or self-care (01) ==
LOC: S4S1 16:13 → S4SX 16:22
PROVIDERS: Referring Provider Obstetrics & Gynecology; Visit Provider Obstetrics & Gynecology
DX: Z34.83 Encounter for supervision of other normal pregnancy, third trimester (principal); Z36.9 Encounter for antenatal screening, unspecified; Z3A.36 36 weeks gestation of pregnancy
CPT/HCPCS: 59025; 76819

== ENCOUNTER 2025-04-29 10:28 | Inpatient (IN) | payer MEDICAID, SELFPAY ==
[2025-04-29] VITALS (58 sets, daily range): BP systolic 116–190; BP diastolic 53–83; PULSE 62–99; RESP 12–18; TEMP 36.7–36.9; O2SAT 96–100; BMI 54.1
--- NOTE | 2025-04-29 11:46 | XR_ITS ---
Examination: age Limited Technique: Grayscale sonographic images pelvis Indications: Patient in active labor unknown presentation Findings: presentation Vertex spine maternal left Cardiac motion 129 BPM Impression: Vertex presentation
[2025-04-29 12:04] LABS: Collection Type, Urine Clean Catch
[2025-04-29 12:27] LABS: Bacteria,Urine Rare; Bilirubin,Urine Negative (Negative); Blood,Urine Negative (Negative); Calcium Oxalate Crystals,Urine 2+; Clarity,Urine Clear (Clear/Hazy); Color,Urine Yellow (Lt Yel-Yel); Glucose, Urine Negative (Negative); Ketones,Urine Negative (Negative); Leukocyte Esterase,Urine Negative (Negative); Nitrite,Urine Negative (Negative); PH,Urine 6.0 (5.0-7.0); Protein,Urine Trace (Neg - Trace); RBC,Urine 1 /hpf (0-3); Specific Gravity,Urine 1.025 (1.001-1.035); Squamous Epithelial Cell,Urine 4 /hpf (0-5); Urobilinogen,Urine Negative mg/dL (0.0-1.0); WBC,Urine 3 /hpf (0-5)
[2025-04-29 13:34] LABS: Basophils # (Auto) 0.0 Thou/mm3 (0.0-0.2); Basophils % (Auto) 0 % (0-2.5); Eosinophils # (Auto) 0.1 Thou/mm3 (0.0-0.5); Eosinophils % (Auto) 1 % (0-10); Hematocrit 32.2 % (36.0-46.0); Hemoglobin 10.9 g/dL (12.0-16.0); Immature Granulocytes Auto 0.05 Thou/mm3 (0.00-0.00); Lymphocytes # (Auto) 1.5 Thou/mm3 (1.0-4.8); Lymphocytes % (Auto) 15 % (10-50); Mean Corpuscular HGB Conc 33.9 g/dl (31.0-37.0); Mean Corpuscular Hemoglobin 26.1 pg (25.0-35.0); Mean Corpuscular Volume 77 fL (80-100); Monocytes # (Auto) 0.7 Thou/mm3 (0.0-0.8); Monocytes % (Auto) 7 % (0-12); Neutrophils # (Auto) 7.7 Thou/mm3 (1.8-7.7); Neutrophils % (Auto) 78 % (37-80); Nucleated Red Blood Cell # 0.00 Thou/mm3 (0.00-0.00); Nucleated Red Blood Cell % 0 /100 WBC (0); Platelet Count 237 Thou/mm3 (140-440); RDW Standard Deviation 40.0 fL (36.4-46.3); Red Blood Count 4.18 Miln/mm3 (4.00-5.20); White Blood Count 10.0 Thou/mm3 (3.6-11.0)
[2025-04-29 13:43] LABS: Alanine Aminotransferase 19 U/L (10-49); Albumin, Serum 3.6 gm/dL (3.5-5.0); Albumin/Globulin Ratio 1.4 (1.2-2.2); Alkaline Phosphatase 129 U/L (46-116); Anion Gap 8 (7-16); Aspartate Amino Transferase 22 U/L (0-34); BUN/Creatinine Ratio 16 Ratio (12-20); Bilirubin,Total 0.3 mg/dL (0.3-1.2); Blood Urea Nitrogen 8 mg/dL (9-23); Calcium 9.3 mg/dL (8.3-10.6); Calcium (Corrected) 9.6 mg/dL (8.5-10.1); Carbon Dioxide 21.0 mMol/L (20.0-31.0); Chloride 109 mMol/L (98-107); Creatinine (Component) 0.5 mg/dL (0.6-1.3); Estimated Creatinine Clearance 207.7 mL/min (>60); Globulin 2.6 gm/dL (2.3-3.5); Glucose 75 mg/dL (74-106); Osmolality,Calculated 272 (275-295); Potassium 4.0 mMol/L (3.4-5.1); Sodium 138 mMol/L (136-145); Total Protein 6.2 gm/dL (5.7-8.2); Uric Acid 6.0 mg/dL (3.1-7.8); eGFR > 60 See Note
[2025-04-29 13:44] LABS: Fibrinogen 567 mg/dL (175-375); INR 0.9 (0.9-1.3); Partial Thromboplastin Time 26.5 Seconds (22.0-36.0); Prothrombin Time 10.3 Seconds (9.0-12.2)
[2025-04-29] MEDS: NIFEdipine XL 30 MG TABCR 60 MG PO (14:33)
[2025-04-29] MEDS: hydrALAZINE INJ 20 MG/ML VIAL 5 MG IVP (16:46)
[2025-04-29] MEDS: RINGERS LACTATED 1000 ML 1,000 ML 100 ML IV (16:51)
[2025-04-29] MEDS: Magnesium Sulfate 4 GM Ivpb 4 GM/50 ML BAG IV (18:14)
[2025-04-29] MEDS: Magnesium Sulfate 2 GM Ivpb 2 GM/50 ML BAG IV (18:14)
--- NOTE | 2025-04-29 18:39 | ESHP_ITS ---
Documentation for date of: 04/29/25 OB Labor/Induct. HPI History of Present Illness Chief complaint: Induction of labor : 7 Para: 5 Term pregnancies: 5 pregnancies: 0 Living children: 5 History of Abortions: Spontaneous and Elective: 0 History of sections: No History of : No JACKIE: 05/24/25 Gestational Age (weeks): 36 Gestational Age (days): 3 History of present illness: Patient is a 34-year-old 7 para 5 at 36 weeks and 3 days with chronic hypertension on 2 meds as well as gestational diabetes on metformin who is presenting for induction of labor. Patient started care with Dr. Dixon at [facility] and then subsequently transferred care to the [facility]. Her blood pressures have been difficult to manage with values spiking to as high as 180s for the systolics and 100s for the diastolics History of Present Dating criteria: based on 2nd trimester US only Labs Labs: Positive: Rubella Titre, Negative: RPR, Hepatitis B, HIV, Chlamydia and Gonorrhea and Unknown: Herpes Type 1, Herpes Type 2 and Group Beta Strep Past Medical History Surgical History SURGICAL: Negative Section Meds Home Medications and Allergies Home Medications ?Medication ?Instructions ?Recorded ?Confirmed ?Type labetalol 200 mg tablet 200 mg PO TID 03/24/2504/25 History Held on 04/20/25. Instructions: Order Change metformin 500 mg tablet 500 mg PO BID 03/24/2504/26 History Allergies Allergy/AdvReac Type Severity Reaction Status Date / Time No Known Allergies Allergy Verified 04/26/25 18:58 OB Exam Physical Exam Vital signs: Pulse BP Pulse Ox 76 163/68 H 99 04/29/25 18:38 04/29/25 18:38 04/29/25 18:38 Constitutional Constitutional: no acute distress Routine HEENT Exam Head: Present normocephalic and atraumatic Eye: Present EOMI and PERRL ENT: Present mucous membranes moist Routine Neck Exam Neck: Present supple and trachea midline Routine Cardiovascular Exam Cardiovascular: Present RRR Routine Abdominal Exam Abdominal: Present soft and normoactive bowel sounds Routine Extremities Exam Extremities: Present full ROM Routine Skin Exam Skin: Present intact, dry and warm Routine Neurological Exam Neurological: Present alert, oriented X3 and CN II-XII intact Routine Psychiatric Exam Psychiatric: Present normal affect and normal thought process OB Results Labs 04/29/25 12:33 04/29/25 12:33 Labs: Short CBC 04/29/25 Range/Units 12:33 WBC 10.0 (3.6-11.0) Thou/mm3 Hgb 10.9 L (12.0-16.0) g/dL Hct 32.2 L (36.0-46.0) % Plt Count 237 (140-440) Thou/mm3 BMP 04/29/25 12:33 Sodium 138 Potassium 4.0 Chloride 109 H Carbon Dioxide 21.0 BUN 8 L Creatinine 0.5 L Glucose 75 Calcium 9.3 Liver Function 04/29/25 Range/Units 12:33 Total Bilirubin 0.3 (0.3-1.2) mg/dL AST 22 (0-34) U/L ALT 19 (10-49) U/L Alkaline Phosphatase 129 H (46-116) U/L Albumin 3.6 (3.5-5.0) gm/dL Urine 04/29/25 Range/Units 11:10 Urine Color Yellow (Lt Yel-Yel) Urine Clarity Clear (Clear/Hazy) Urine pH 6.0 (5.0-7.0) Ur Specific [place] 1.025 (1.001-1.035) Urine Protein Trace (Neg - Trace) Urine Glucose (UA) Negative (Negative) OB Assessment & Plan Assessment and Plan (1) Gestational hypertension: Status: Acute (2) Supervision of high risk , unspecified, third trimester: Status: Acute Assessment and plan: 1. Induction of Labor * Cervical assessment and Knott score documentation * Cervical ripening with Cervidil (dinoprostone) insert * Place Cervidil 10mg vaginal insert * Continuous heart rate monitoring for 2 hours post-insertion * Monitor for uterine hyperstimulation * Remove if regular contractions occur or after 12 hours * Proceed to oxytocin when Knott's score >8 * Reassess cervix q6-12 hours during ripening * Initiate oxytocin protocol once favorable cervix achieved * Continuous heart rate monitoring throughout labor * Maternal vital signs q15 minutes during active management 2. Seizure Prophylaxis * Magnesium sulfate infusion per preeclampsia protocol * Loading dose: 4-6g IV over 15-20 minutes * Maintenance: 2g/hour continuous infusion * Monitor magnesium levels, deep tendon reflexes, and respiratory status * Antidote (calcium gluconate) readily available 3. Blood Pressure Management * Continue Labetalol 400mg PO BID * Continue Nifedipine XL 60mg daily * Target BP <160/110 mmHg, avoid <140/90 mmHg * IV antihypertensives available for acute hypertensive episodes * Continuous blood pressure monitoring 4. Diabetes Management * During cervical ripening phase: * Fingersticks ACHS (before meals and at bedtime) * Continue home metformin * During active labor: * Fingersticks Q6 hours * Sliding scale insulin coverage for glucose control * Hold metformin once active labor begins * Target glucose 70-110 mg/dL throughout labor process 5. Delivery Planning * Low threshold for conversion to section given: * Preeclampsia with potential for rapid deterioration * Diabetic complications * Late gestation * Anesthesia consultation for epidural vs. spinal planning * NICU notification for late delivery * Pediatric team availability for assessment 6. Monitoring Parameters Maternal: * Continuous cardiac monitoring * Hourly urine output (Napier catheter) * Complete blood count, comprehensive metabolic panel, liver function tests * Coagulation studies if indicated * Proteinuria monitoring * Neurologic assessments q2-4 hours : * Continuous electronic monitoring * Prepare for potential compromise requiring emergent delivery (3) History of COVID-19: Status: Acute (4) 36 weeks gestation of : Status: Acute
--- NOTE | 2025-04-29 18:39 | PD.LDHP ---
Documentation for date of: 04/29/25 OB Labor/Induct. HPI History of Present Illness Chief complaint: Induction of labor : 7 Para: 5 Term pregnancies: 5 pregnancies: 0 Living children: 5 History of Abortions: Spontaneous and Elective: 0 History of sections: No History of : No JACKIE: 05/24/25 Gestational Age (weeks): 36 Gestational Age (days): 3 History of present illness: Patient is a 34-year-old 7 para 5 at 36 weeks and 3 days with chronic hypertension on 2 meds as well as gestational diabetes on metformin who is presenting for induction of labor. Patient started care with Dr. Dixon at [facility] and then subsequently transferred care to the [facility] clinic. Her blood pressures have been difficult to manage with values spiking to as high as 180s for the systolics and 100s for the diastolics History of Present Dating criteria: based on 2nd trimester US only Labs Labs: Positive: Rubella Titre, Negative: RPR, Hepatitis B, HIV, Chlamydia and Gonorrhea and Unknown: Herpes Type 1, Herpes Type 2 and Group Beta Strep Past Medical History Surgical History SURGICAL: Negative Section Meds Home Medications and Allergies Home Medications ?Medication ?Instructions ?Recorded ?Confirmed ?Type labetalol 200 mg tablet 200 mg PO TID 03/24/25 04/25/25 History Held on 04/20/25. Instructions: Order Change metformin 500 mg tablet 500 mg PO BID 03/24/25 04/26/25 History Allergies Allergy/AdvReac Type Severity Reaction Status Date / Time No Known Allergies Allergy Verified 04/26/25 18:58 OB Exam Physical Exam Vital signs: Pulse BP Pulse Ox 76 163/68 H 99 04/29/25 18:38 04/29/25 18:38 04/29/25 18:38 Constitutional Constitutional: no acute distress Routine HEENT Exam Head: Present normocephalic and atraumatic Eye: Present EOMI and PERRL ENT: Present mucous membranes moist Routine Neck Exam Neck: Present supple and trachea midline Routine Cardiovascular Exam Cardiovascular: Present RRR Routine Abdominal Exam Abdominal: Present soft and normoactive bowel sounds Routine Extremities Exam Extremities: Present full ROM Routine Skin Exam Skin: Present intact, dry and warm Routine Neurological Exam Neurological: Present alert, oriented X3 and CN II-XII intact Routine Psychiatric Exam Psychiatric: Present normal affect and normal thought process OB Results Labs 04/29/25 12:33 04/29/25 12:33 Labs: Short CBC 04/29/25 Range/Units 12:33 WBC 10.0 (3.6-11.0) Thou/mm3 Hgb 10.9 L (12.0-16.0) g/dL Hct 32.2 L (36.0-46.0) % Plt Count 237 (140-440) Thou/mm3 BMP 04/29/25 12:33 Sodium 138 Potassium 4.0 Chloride 109 H Carbon Dioxide 21.0 BUN 8 L Creatinine 0.5 L Glucose 75 Calcium 9.3 Liver Function 04/29/25 Range/Units 12:33 Total Bilirubin 0.3 (0.3-1.2) mg/dL AST 22 (0-34) U/L ALT 19 (10-49) U/L Alkaline Phosphatase 129 H (46-116) U/L Albumin 3.6 (3.5-5.0) gm/dL Urine 04/29/25 Range/Units 11:10 Urine Color Yellow (Lt Yel-Yel) Urine Clarity Clear (Clear/Hazy) Urine pH 6.0 (5.0-7.0) Ur Specific [place] 1.025 (1.001-1.035) Urine Protein Trace (Neg - Trace) Urine Glucose (UA) Negative (Negative) OB Assessment & Plan Assessment and Plan (1) Gestational hypertension: Status: Acute (2) Supervision of high risk , unspecified, third trimester: Status: Acute Assessment and plan: 1. Induction of Labor Cervical assessment and Knott score documentation Cervical ripening with Cervidil (dinoprostone) insert Place Cervidil 10mg vaginal insert Continuous heart rate monitoring for 2 hours post-insertion Monitor for uterine hyperstimulation Remove if regular contractions occur or after 12 hours Proceed to oxytocin when Knott's score >8 Reassess cervix q6-12 hours during ripening Initiate oxytocin protocol once favorable cervix achieved Continuous heart rate monitoring throughout labor Maternal vital signs q15 minutes during active management 2. Seizure Prophylaxis Magnesium sulfate infusion per preeclampsia protocol Loading dose: 4-6g IV over 15-20 minutes Maintenance: 2g/hour continuous infusion Monitor magnesium levels, deep tendon reflexes, and respiratory status Antidote (calcium gluconate) readily available 3. Blood Pressure Management Continue Labetalol 400mg PO BID Continue Nifedipine XL 60mg daily Target BP <160/110 mmHg, avoid <140/90 mmHg IV antihypertensives available for acute hypertensive episodes Continuous blood pressure monitoring 4. Diabetes Management During cervical ripening phase: Fingersticks ACHS (before meals and at bedtime) Continue home metformin During active labor: Fingersticks Q6 hours Sliding scale insulin coverage for glucose control Hold metformin once active labor begins Target glucose 70-110 mg/dL throughout labor process 5. Delivery Planning Low threshold for conversion to section given: Preeclampsia with potential for rapid deterioration Diabetic complications Late gestation Anesthesia consultation for epidural vs. spinal planning NICU notification for late delivery Pediatric team availability for assessment 6. Monitoring Parameters Maternal: Continuous cardiac monitoring Hourly urine output (Napier catheter) Complete blood count, comprehensive metabolic panel, liver function tests Coagulation studies if indicated Proteinuria monitoring Neurologic assessments q2-4 hours : Continuous electronic monitoring Prepare for potential compromise requiring emergent delivery (3) History of COVID-19: Status: Acute (4) 36 weeks gestation of : Status: Acute
[2025-04-29 18:49] LABS: Magnesium 1.5 mg/dL (1.6-2.6)
[2025-04-29] MEDS: ceFAZolin/D5W 2 GM IV 2 GM/100 ML BAG IV (19:02)
[2025-04-29 19:03] LABS: Basophils # (Auto) 0.0 Thou/mm3 (0.0-0.2); Basophils % (Auto) 0 % (0-2.5); Eosinophils # (Auto) 0.1 Thou/mm3 (0.0-0.5); Eosinophils % (Auto) 1 % (0-10); Hematocrit 32.7 % (36.0-46.0); Hemoglobin 11.1 g/dL (12.0-16.0); Immature Granulocytes Auto 0.05 Thou/mm3 (0.00-0.00); Lymphocytes # (Auto) 1.6 Thou/mm3 (1.0-4.8); Lymphocytes % (Auto) 14 % (10-50); Mean Corpuscular HGB Conc 33.9 g/dl (31.0-37.0); Mean Corpuscular Hemoglobin 26.1 pg (25.0-35.0); Mean Corpuscular Volume 77 fL (80-100); Monocytes # (Auto) 0.6 Thou/mm3 (0.0-0.8); Monocytes % (Auto) 5 % (0-12); Neutrophils # (Auto) 8.8 Thou/mm3 (1.8-7.7); Neutrophils % (Auto) 80 % (37-80); Nucleated Red Blood Cell # 0.00 Thou/mm3 (0.00-0.00); Nucleated Red Blood Cell % 0 /100 WBC (0); Platelet Count 225 Thou/mm3 (140-440); RDW Standard Deviation 39.6 fL (36.4-46.3); Red Blood Count 4.26 Miln/mm3 (4.00-5.20); White Blood Count 11.1 Thou/mm3 (3.6-11.0)
[2025-04-29] MEDS: FAMOTIDINE INJ 10 MG/ML VIAL 2 ML 20 MG IV (19:03)
[2025-04-29] MEDS: CITRIC ACID/SODIUM CITR 15 ML UDC (BICITRA) 30 ML PO (19:03)
[2025-04-29] MEDS: ceFAZolin/D5W 1 GM IVPB 1 GM/50 ML BAG IV (19:04)
[2025-04-29 19:58] LABS: Syphilis Nonreactive (Nonreactive)
[2025-04-29 20:30] LABS: Alanine Aminotransferase 22 U/L (10-49); Albumin, Serum 3.8 gm/dL (3.5-5.0); Albumin/Globulin Ratio 1.7 (1.2-2.2); Alkaline Phosphatase 131 U/L (46-116); Anion Gap 11 (7-16); Aspartate Amino Transferase 25 U/L (0-34); BUN/Creatinine Ratio 23 Ratio (12-20); Bilirubin,Total 0.5 mg/dL (0.3-1.2); Blood Urea Nitrogen 9 mg/dL (9-23); Calcium 9.5 mg/dL (8.3-10.6); Calcium (Corrected) 9.7 mg/dL (8.5-10.1); Carbon Dioxide 20.6 mMol/L (20.0-31.0); Chloride 105 mMol/L (98-107); Creatinine (Component) 0.4 mg/dL (0.6-1.3); Estimated Creatinine Clearance 259.6 mL/min (>60); Globulin 2.2 gm/dL (2.3-3.5); Glucose 75 mg/dL (74-106); LDH (Lactate Dehydrogenase) 139 U/L (120-246); Magnesium 3.5 mg/dL (1.6-2.6); Osmolality,Calculated 271 (275-295); Potassium 3.9 mMol/L (3.4-5.1); Sodium 137 mMol/L (136-145); Total Protein 6.0 gm/dL (5.7-8.2); eGFR > 60 See Note
[2025-04-29 20:39] LABS: Uric Acid 6.5 mg/dL (3.1-7.8)
[2025-04-29] MEDS: MAGNESIUM SULF 20 GM IVPB 20 GM/500 ML BAG IV (20:50)
[2025-04-29 20:59] LABS: Magnesium 2.6 mg/dL (1.6-2.6)
--- NOTE | 2025-04-29 21:04 | PD.GYNPROC ---
Operative Note - ORE DIGGER Procedure Date of procedure: 04/29/25 Procedure Performed: Primary low-transverse section. Indication: 34-year-old G7, P5 with chronic hypertension with superimposed preeclampsia with severe features on magnesium Type II DM in Difficult to control blood pressures and spite of multiple antihypertensive meds Maternal request Anesthesia type: Spinal Procedure description: Informed consent was obtained and the patient was taken to the operating room. Identity was confirmed by double identifiers and she was placed on the operating table. Spinal anesthesia was administered and she was positioned in the supine position. The abdomen and perineum were prepped in the usual sterile fashion and a Napier catheter was placed to continuous drainage. Sterile drapes were applied. The incision site was tested for adequacy of anesthesia. A Pfannenstiel skin incision was made with a scalpel and carried to the subcutaneous fat up to the rectus fascia. The rectus fascia was incised on either side of the midline and the incisions were extended bilaterally. The fascia was gently dissected off the ventral surface of the rectus muscle both superiorly and inferiorly. The rectus bellies were gently in the midline and the peritoneum was identified and entered bluntly using the surgeon's finger. The peritoneal opening was now stretched to create an adequate opening for access to the uterus. Joseph O-ring retractor was placed for adequate visualization. The anterior surface of the uterus was palpated. The bladder reflection was identified and a Son Waller low transverse uterine incision was made in the lower uterine segment taking care to avoid the bladder. Uterine entry was accomplished bluntly and the opening was stretched to create adequate room. The amniotic membranes were now ruptured and clear amniotic fluid was released. The fetus was noted to be in the vertex position. The head was gently elevated out of the maternal pelvis and single loop of nuchal cord was found around the neck. The cord was released and the rest of the shoulders and body were delivered by gentle fundal pressure. Umbilical cord was doubly clamped, divided and the was handed over to the waiting team. Cord gas samples were obtained. The placenta was delivered by gentle traction on the umbilical cord. The interior of the uterus was now thoroughly cleaned of all blood and debris and membranes. The hysterotomy angles were grasped by a pair of Allis clamps and the hysterotomy was closed using 1 Monocryl suture in 2 layers. The first layer was used to approximate the muscle in a running locked fashion, the second layer was used to approximate the thickness of the myometrium and uterine serosa in an imbricated manner. Once the repair was completed the hysterotomy was inspected and noted to be adequately hemostatic. The hysterotomy was once again inspected and hemostasis was noted to be satisfactory. The Joseph retractor was now removed. The peritoneal edges were re approximated. The rectus muscles were re approximated. The rectus fascia was now repaired using 0 Vicryl suture in a running fashion. The subcutaneous layer was now copiously irrigated using warm normal saline. All bleeding points were cauterized using the Bovie. The subcutaneous fat was closed using 3-0 Vicryl. The skin was closed using 4-0 Monocryl in a subcuticular fashion. The skin was cleaned and a sterile dressing was applied. The patient was now undraped, the abdomen and back were thoroughly cleaned and she was transferred to the recovery room in a stable and awake condition. The patient tolerated the entire procedure well. No complications were encountered. All instrument, sponge and lap counts were correct x2. Estimated blood loss (ml): 800 Complications: none Surgical staff Operation Date: 04/29/25 19:30 <No data on this case meets the specified criteria> Diagnosis Discharge Diagnosis (1) Supervision of high risk , unspecified, third trimester: Status: Acute (2) Chronic hypertension with superimposed preeclampsia: Status: Acute (3) Type 2 diabetes mellitus affecting in third trimester, antepartum: Status: Acute (4) Obesity complicating , third trimester: Status: Acute (5) BMI 50.0-59.9, adult: Status: Acute Problem List Completed Was Problem List Reviewed/Reconciled?: Yes
--- NOTE | 2025-04-29 21:07 | OBDSUM_ITS ---
Data (Nazario) Data Hx Section: No : 7 Term: 5 : 0 Livin Abortions: Spontaneous & Theraputic: 0 Delivery Data (Nazario) Labor Data Initiation of labor: Induction Induction/Augmentation Agent: Cervidil ROM date: 04/29/25 ROM time: 19:44 Amniotic membrane rupture type: Artificial Amniotic fluid description: Clear Delivery Data Onset of labor date: 04/29/25 Onset of labor time: 19:45 [place] delivery date: 04/29/25 delivery time: 19:45 Placenta delivery date: 04/29/25 Placenta delivery time: 19:47 Delivered by: Abbe Spear Delivery nurse: Radhames Connors nurse: MARVIN Electronic Assembly at delivery: Yes Support person(s) at delivery: FOB Delivery Method Delivery method: Low Transverse Presentation: Vertex Anesthesia Type Anesthesia Type: Spinal Anesthesia type: Spinal Placenta Placenta delivery description: Manual Removal Cord blood sent to lab: Yes cord blood collection: Cord Blood Type Episiotomy Episiotomy description: None Umbilical Cord cord description: 3 Vessels Data (Nazario) Data order: 1 [place]'s gender: Female Identification band number: [id number] weight (gms): 2440 g Weight (pounds): 5 lbs and 6.1 ozs
[2025-04-29] MEDS: OXYTOCIN in NS 20 units 20 UNIT/1,000 ML BAG 125 UNIT IV (21:18)
[2025-04-29] MEDS: LABETALOL 100 MG TABLET 400 MG PO (21:21)
[2025-04-30] VITALS (24 sets, daily range): BP systolic 121–158; BP diastolic 52–77; PULSE 70–90; RESP 15–19; TEMP 36.6–37.1; O2SAT 95–99
[2025-04-30] MEDS: HYDROcodone/APAP 5/325 TABLET 2 TAB PO ×3 (00:05→16:12)
[2025-04-30 00:57] LABS: Basophils # (Auto) 0.0 Thou/mm3 (0.0-0.2); Basophils % (Auto) 0 % (0-2.5); Eosinophils # (Auto) 0.0 Thou/mm3 (0.0-0.5); Eosinophils % (Auto) 0 % (0-10); Hematocrit 33.5 % (36.0-46.0); Hemoglobin 11.6 g/dL (12.0-16.0); Immature Granulocytes Auto 0.10 Thou/mm3 (0.00-0.00); Lymphocytes # (Auto) 0.8 Thou/mm3 (1.0-4.8); Lymphocytes % (Auto) 5 % (10-50); Mean Corpuscular HGB Conc 34.6 g/dl (31.0-37.0); Mean Corpuscular Hemoglobin 26.4 pg (25.0-35.0); Mean Corpuscular Volume 76 fL (80-100); Monocytes # (Auto) 0.2 Thou/mm3 (0.0-0.8); Monocytes % (Auto) 1 % (0-12); Neutrophils # (Auto) 14.4 Thou/mm3 (1.8-7.7); Neutrophils % (Auto) 93 % (37-80); Nucleated Red Blood Cell # 0.00 Thou/mm3 (0.00-0.00); Nucleated Red Blood Cell % 0 /100 WBC (0); Platelet Count 222 Thou/mm3 (140-440); RDW Standard Deviation 38.9 fL (36.4-46.3); Red Blood Count 4.40 Miln/mm3 (4.00-5.20); White Blood Count 15.5 Thou/mm3 (3.6-11.0)
[2025-04-30 01:15] LABS: Alanine Aminotransferase 24 U/L (10-49); Albumin, Serum 3.6 gm/dL (3.5-5.0); Albumin/Globulin Ratio 1.3 (1.2-2.2); Alkaline Phosphatase 134 U/L (46-116); Anion Gap 8 (7-16); Aspartate Amino Transferase 28 U/L (0-34); BUN/Creatinine Ratio 15 Ratio (12-20); Bilirubin,Total 0.6 mg/dL (0.3-1.2); Blood Urea Nitrogen 6 mg/dL (9-23); Calcium 8.1 mg/dL (8.3-10.6); Calcium (Corrected) 8.4 mg/dL (8.5-10.1); Carbon Dioxide 20.2 mMol/L (20.0-31.0); Chloride 109 mMol/L (98-107); Creatinine (Component) 0.4 mg/dL (0.6-1.3); Estimated Creatinine Clearance 259.6 mL/min (>60); Globulin 2.7 gm/dL (2.3-3.5); Glucose 106 mg/dL (74-106); LDH (Lactate Dehydrogenase) 171 U/L (120-246); Osmolality,Calculated 271 (275-295); Potassium 3.8 mMol/L (3.4-5.1); Sodium 137 mMol/L (136-145); Total Protein 6.3 gm/dL (5.7-8.2); Uric Acid 6.5 mg/dL (3.1-7.8); eGFR > 60 See Note
[2025-04-30 01:53] LABS: Magnesium 3.0 mg/dL (1.6-2.6)
[2025-04-30] MEDS: MAGNESIUM SULF 20 GM IVPB 20 GM/500 ML BAG IV (06:12)
[2025-04-30] MEDS: OXYTOCIN in NS 20 units 20 UNIT/1,000 ML BAG 125 UNIT IV (06:14)
--- NOTE | 2025-04-30 07:01 | ESPR_ITS ---
RE: HARITHA JACOBSON : 1990 DATE OF SERVICE: 04/30/2025 Postop day #1. The patient denies any problem or complaint. UA adequate with Napier in place. She is tolerating diet. She is passing flatus. She denies any excessive vaginal bleeding. She denies any dizziness or lightheadedness. She denies any chest pain, palpitations, shortness of breath or lower extremity pain. OBJECTIVE: Vital Signs: Blood pressure 157/72, heart rate 74, respirations 16, temperature is 98.2, pulse oximetry is 97% on room air. Lungs: Clear to auscultation bilaterally. Heart: Regular rate and rhythm. Abdomen: Incision clear and intact. Fundus is firm. Lochia is scant. Extremities: Nontender. ASSESSMENT AND PLAN: 1. Postoperative day #1, status post delivery due to uncontrolled hypertension with superimposed preeclampsia. Blood pressure currently controlled with labetalol and hydralazine. Continue magnesium sulfate until 24 hours for seizure chemoprophylaxis. Monitor magnesium levels. Last magnesium level was 3.0. 2. Gestational diabetes. Monitor blood sugars. Continue metformin at 500 p.o. b.i.d. Possible discharge home tomorrow. support. Encourage ambulation. DT: 06:52:27 TT: 06:59:00 Ref: [id number] - TID: [id number] MTDD
[2025-04-30 07:06] LABS: Basophils # (Auto) 0.0 Thou/mm3 (0.0-0.2); Basophils % (Auto) 0 % (0-2.5); Eosinophils # (Auto) 0.0 Thou/mm3 (0.0-0.5); Eosinophils % (Auto) 0 % (0-10); Hematocrit 29.9 % (36.0-46.0); Hemoglobin 10.4 g/dL (12.0-16.0); Immature Granulocytes Auto 0.09 Thou/mm3 (0.00-0.00); Lymphocytes # (Auto) 1.0 Thou/mm3 (1.0-4.8); Lymphocytes % (Auto) 6 % (10-50); Mean Corpuscular HGB Conc 34.8 g/dl (31.0-37.0); Mean Corpuscular Hemoglobin 26.5 pg (25.0-35.0); Mean Corpuscular Volume 76 fL (80-100); Monocytes # (Auto) 0.4 Thou/mm3 (0.0-0.8); Monocytes % (Auto) 2 % (0-12); Neutrophils # (Auto) 14.3 Thou/mm3 (1.8-7.7); Neutrophils % (Auto) 91 % (37-80); Nucleated Red Blood Cell # 0.00 Thou/mm3 (0.00-0.00); Nucleated Red Blood Cell % 0 /100 WBC (0); Platelet Count 231 Thou/mm3 (140-440); RDW Standard Deviation 38.5 fL (36.4-46.3); Red Blood Count 3.93 Miln/mm3 (4.00-5.20); White Blood Count 15.7 Thou/mm3 (3.6-11.0)
[2025-04-30 07:28] LABS: Alanine Aminotransferase 23 U/L (10-49); Albumin, Serum 3.4 gm/dL (3.5-5.0); Albumin/Globulin Ratio 1.4 (1.2-2.2); Alkaline Phosphatase 121 U/L (46-116); Anion Gap 7 (7-16); Aspartate Amino Transferase 27 U/L (0-34); BUN/Creatinine Ratio 13 Ratio (12-20); Bilirubin,Total 0.5 mg/dL (0.3-1.2); Blood Urea Nitrogen < 5 mg/dL (9-23); Calcium 7.9 mg/dL (8.3-10.6); Calcium (Corrected) 8.4 mg/dL (8.5-10.1); Carbon Dioxide 20.9 mMol/L (20.0-31.0); Chloride 106 mMol/L (98-107); Creatinine (Component) 0.4 mg/dL (0.6-1.3); Estimated Creatinine Clearance 259.6 mL/min (>60); Globulin 2.5 gm/dL (2.3-3.5); Glucose 122 mg/dL (74-106); LDH (Lactate Dehydrogenase) 203 U/L (120-246); Magnesium 3.4 mg/dL (1.6-2.6); Osmolality,Calculated 266 (275-295); Potassium 4.0 mMol/L (3.4-5.1); Sodium 134 mMol/L (136-145); Total Protein 5.9 gm/dL (5.7-8.2); Uric Acid 7.1 mg/dL (3.1-7.8); eGFR > 60 See Note
--- NOTE | 2025-04-30 09:39 | PC.NURSE ---
[address] Spear on unit about pts scheduled meds, 400mg Labetalol and 10mg hydralazine, asked if either med should be held with her pressures in the 130s/ stated to give both. stated to hold meds if the patients bp's are below 120/80
[2025-04-30] MEDS: LABETALOL 100 MG TABLET 400 MG PO ×2 (09:51→20:15)
[2025-04-30] MEDS: DOCUSATE SOD 100 MG CAPSULE PO (09:51)
[2025-04-30] MEDS: IBUPROFEN TAB 400 MG TABLET 800 MG PO ×2 (12:12→20:14)
[2025-04-30 12:22] LABS: Basophils # (Auto) 0.0 Thou/mm3 (0.0-0.2); Basophils % (Auto) 0 % (0-2.5); Eosinophils # (Auto) 0.0 Thou/mm3 (0.0-0.5); Eosinophils % (Auto) 0 % (0-10); Hematocrit 28.4 % (36.0-46.0); Hemoglobin 10.0 g/dL (12.0-16.0); Immature Granulocytes Auto 0.10 Thou/mm3 (0.00-0.00); Lymphocytes # (Auto) 1.5 Thou/mm3 (1.0-4.8); Lymphocytes % (Auto) 10 % (10-50); Mean Corpuscular HGB Conc 35.2 g/dl (31.0-37.0); Mean Corpuscular Hemoglobin 26.7 pg (25.0-35.0); Mean Corpuscular Volume 76 fL (80-100); Monocytes # (Auto) 0.9 Thou/mm3 (0.0-0.8); Monocytes % (Auto) 6 % (0-12); Neutrophils # (Auto) 12.9 Thou/mm3 (1.8-7.7); Neutrophils % (Auto) 84 % (37-80); Nucleated Red Blood Cell # 0.00 Thou/mm3 (0.00-0.00); Nucleated Red Blood Cell % 0 /100 WBC (0); Platelet Count 234 Thou/mm3 (140-440); RDW Standard Deviation 38.5 fL (36.4-46.3); Red Blood Count 3.75 Miln/mm3 (4.00-5.20); White Blood Count 15.4 Thou/mm3 (3.6-11.0)
[2025-04-30 12:45] LABS: Alanine Aminotransferase 24 U/L (10-49); Albumin, Serum 3.3 gm/dL (3.5-5.0); Albumin/Globulin Ratio 1.4 (1.2-2.2); Alkaline Phosphatase 115 U/L (46-116); Anion Gap 6 (7-16); Aspartate Amino Transferase 28 U/L (0-34); BUN/Creatinine Ratio 18 Ratio (12-20); Bilirubin,Total 0.5 mg/dL (0.3-1.2); Blood Urea Nitrogen 7 mg/dL (9-23); Calcium 8.0 mg/dL (8.3-10.6); Calcium (Corrected) 8.6 mg/dL (8.5-10.1); Carbon Dioxide 22.8 mMol/L (20.0-31.0); Chloride 106 mMol/L (98-107); Creatinine (Component) 0.4 mg/dL (0.6-1.3); Estimated Creatinine Clearance 259.6 mL/min (>60); Globulin 2.4 gm/dL (2.3-3.5); Glucose 100 mg/dL (74-106); LDH (Lactate Dehydrogenase) 198 U/L (120-246); Magnesium 3.4 mg/dL (1.6-2.6); Osmolality,Calculated 268 (275-295); Potassium 3.9 mMol/L (3.4-5.1); Sodium 135 mMol/L (136-145); Total Protein 5.7 gm/dL (5.7-8.2); Uric Acid 6.7 mg/dL (3.1-7.8); eGFR > 60 See Note
[2025-04-30] MEDS: RINGERS LACTATED 1000 ML 1,000 ML 125 ML IV (13:09)
--- NOTE | 2025-04-30 19:11 | PC.NURSE ---
[address] Razo regarding patient's mag, ordered to dc mag and IV fluids NOW. Also stated to remove denis cath and ambulate pt, Stop glucose checks and cancel lispro.
[2025-04-30] MEDS: HYDROcodone/APAP 5/325 TABLET 1 TAB PO (23:11)
[2025-05-01] MEDS: HYDROcodone/APAP 5/325 TABLET 2 TAB PO ×3 (03:31→15:15)
[2025-05-01 03:46] VITALS: BP 125/68; PULSE 77; RESP 18; TEMP 36.7; O2SAT 98
[2025-05-01 07:07] VITALS: BP 144/77; PULSE 77; RESP 20; TEMP 36.8; O2SAT 98
[2025-05-01] MEDS: IBUPROFEN TAB 400 MG TABLET 800 MG PO ×2 (07:29→19:26)
--- NOTE | 2025-05-01 08:22 | ESPR_ITS ---
Subjective Subjective Interval history: Patient is a 34-year-old G7, P6 postoperative day #2 status post primary low- transverse section for chronic hypertension with superimposed superimposed severe preeclampsia based on blood pressure criteria. She had a C- section performed by Dr. Spear. She is doing well and would like to go home. Exam Vital Signs Temp Pulse Resp BP Pulse Ox O2 Del Method 98.1 F 77 18 125/68 98 Room Air 05/01/25 03:46 05/01/25 03:46 05/01/25 03:46 05/01/25 03:46 05/01/25 03:46 05/01/25 03:46 Narrative Exam Patient is alert and oriented x 3 in no apparent distress. She is pleasant and resting comfortably in bed. Abdomen is morbidly obese. She has a large pannus. The incision is clean dry and intact. Extremities show no significant edema. Fundus is firm. Objective Labs 04/30/25 12:15 04/30/25 12:15 Labs: Laboratory Results - last 24 hr 04/30/25 12:15 WBC 15.4 H RBC 3.75 L Hgb 10.0 L Hct 28.4 L MCV 76 L MCH 26.7 MCHC 35.2 RDW Std Deviation 38.5 Plt Count 234 Neut % (Auto) 84 H Lymph % (Auto) 10 [place] % (Auto) 6 Eos % (Auto) 0 Baso % (Auto) 0 Neut # (Auto) 12.9 H Lymph # (Auto) 1.5 [place] # (Auto) 0.9 H Eos # (Auto) 0.0 Baso # (Auto) 0.0 Immature Gran # (Auto) 0.10 H Absolute Nucleated RBC 0.00 Immature Gran % 1 H Nucleated RBC % 0 Sodium 135 L Potassium 3.9 Chloride 106 Carbon Dioxide 22.8 Anion Gap 6 L BUN 7 L Creatinine 0.4 L Estim Creat Clear Calc 259.6 eGFR > 60 BUN/Creatinine Ratio 18 Glucose 100 Calculated Osmolality 268 L Uric Acid 6.7 Calcium 8.0 L Corrected Calcium 8.6 Magnesium 3.4 H Total Bilirubin 0.5 AST 28 ALT 24 Alkaline Phosphatase 115 Lactate Dehydrogenase 198 Total Protein 5.7 Albumin 3.3 L Globulin 2.4 Albumin/Globulin Ratio 1.4 Assessment & Plan Problem List (1) Chronic hypertension with superimposed preeclampsia: Status: Acute Assessment and plan: Discharged home on labetalol 400 twice daily and hydralazine 5 3 times daily. Patient has blood pressure cuff at home. Discharge instructions given. (2) BMI 50.0-59.9, adult: Status: Acute Assessment and plan: Lovenox 40 SQ daily x 6 weeks to prevent DVT (3) Term delivered: Status: Acute (4) delivery delivered: Status: Acute Assessment and plan: Discharge instructions given including no heavy lifting intercourse times tampons or douching x 6 weeks (5) Type 2 diabetes mellitus affecting in third trimester, antepartum: Status: Acute Assessment and plan: Home on metformin. Patient is aware of following diet and checking blood sugars. Time Spent With Patient Time: Total time spent is greater than 50% in coordination of care (as documented) at patient's floor/unit and/or counseling patient: Time with patient: less than 15 minutes
--- NOTE | 2025-05-01 08:28 | ESDS_ITS ---
DS: Providers Provider Date of admission: 04/29/25 10:28 Primary care physician: Fausto Robles Admitting Provider: Abbe Spear MD Attending Provider on Admission: Everardo Razo MD Consults: 04/29/25 21:30 Referral Routine Comment: Attending Provider on DC: Pricilla Jha MD ([facility]) Discharging Provider: Pricilla Jha MD ([facility]) Anticipated date of discharge: 05/01/25 DS: Diagnosis Discharge Diagnosis (1) delivery delivered: Status: Acute Assessment & Plan: Discharge instructions given including no heavy lifting, intercourse, tampons, douching x 6 weeks. (2) BMI 50.0-59.9, adult: Status: Acute Assessment & Plan: Lovenox 40 SQ to be given for 6 weeks . (3) Chronic hypertension with superimposed preeclampsia: Status: Acute Assessment & Plan: Home on labetalol 400 twice daily hydralazine 5 3 times daily (4) Type 2 diabetes mellitus affecting in third trimester, antepartum: Status: Acute Assessment & Plan: Home on metformin 500 twice daily Problem List Completed Was Problem List Reviewed/Reconciled?: Yes Summary/Hosp Course Brief History: Patient is a 34-year-old 7 para 5 at 36 weeks and 3 days with chronic hypertension on 2 meds as well as gestational diabetes on metformin who is presenting for induction of labor. Patient started care with Dr. Dixon at [facility] and then subsequently transferred care to the [facility] clinic. Her blood pressures have been difficult to manage with values spiking to as high as 180s for the systolics and 100s for the diastolics Dr. Magaña performed a primary for difficult to control blood pressures, chronic hypertension with superimposed preeclampsia as the patient was not in [facility] on 04/29/2025. Please see op report for further details. Postoperatively patient's blood pressure stabilized on labetalol 400 twice daily hydralazine 5 mg 3 times daily. Her blood sugars were controlled on metformin 500 twice daily. She was discharged home postoperative day #2 in stable condition. Postoperative vital signs were stable and labs were stable. Discharge instructions given. Peripartum Data Delivery Method: Low Transverse Episiotomy Description: None Procedures: Procedures Operation Date: 04/29/25 19:30 Actual Procedure Side Surgeon p in OB Abbe Beatris, MD complications: none Status at Discharge Functional status at discharge: independent ambulation Overall status at discharge: patient is progressing back to baseline Time Spent with Patient Time attestation: Total time spent providing and/or coordinating discharge services: Time spent: Less than 30 minutes Specific discharge activities: No heavy lifting, exercise, tampons, douching, bathtubs, swimming pools x 6 weeks Exam Vital Signs Temp Pulse Resp BP Pulse Ox O2 Del Method 98.1 F 77 18 125/68 98 Room Air 05/01/25 03:46 05/01/25 03:46 05/01/25 03:46 05/01/25 03:46 05/01/25 03:46 05/01/25 03:46 Narrative Exam Patient is alert and oriented x 3 and in no apparent distress fundus is firm incisions clean dry and intact. She has a large pannus. Extremities show no significant edema or erythema. Additional findings Additional findings: +2-3 pedal edema no erythema Discharge Plan Plan Patient Disposition: HOME (Self Care) Patient condition on transfer: Stable Prescriptions/Referrals Prescriptions/Med Rec: No Action (DME) blood-glucose meter Kit See Rx Instructions .ROUTE .MEDSUPPLY Qty: 1 0RF Rx Instructions: As directed (DME) Blood Glucose Test Strip See Rx Instructions .ROUTE .MEDSUPPLY Qty: 10 0RF Rx Instructions: As directed (DME) lancets Misc See Rx Instructions .ROUTE .MEDSUPPLY Qty: 100 0RF Rx Instructions: As directed nifedipine 60 mg tablet extended release 60 mg PO QDAY 30 Days Qty: 30 1RF labetalol 400 mg tablet 400 mg PO BID 30 Days Qty: 60 2RF nifedipine 60 mg tablet extended release 60 mg PO QDAY 30 Days Qty: 30 1RF 400 mcg Tablet,Chewable 1 mcg PO QDAY Qty: 20 0RF metformin 500 mg tablet 500 mg PO BID labetalol 200 mg tablet 200 mg PO TID Referrals: Fausto Ferro [Primary Care Provider] - Patient/Caregiver Discharge Instructions Education Materials: : Caring for Yourself, C Section Dc Print Language: Chadian Stand Alone Forms: Julsia Award Info., Patient Portal Info Letter Planned Discharge Date 05/01/25
[2025-05-01 09:17] VITALS: BP 144/77; PULSE 77
[2025-05-01] MEDS: DOCUSATE SOD 100 MG CAPSULE PO (09:17)
[2025-05-01] MEDS: LABETALOL 100 MG TABLET 400 MG PO (09:17)
--- NOTE | 2025-05-01 11:01 | PC.NURSE ---
05/01/2025 0945 social service workers Alexander on the unit.
[2025-05-01 11:05] VITALS: BP 135/73; PULSE 77; RESP 20; TEMP 37.1; O2SAT 98
--- NOTE | 2025-05-01 11:35 | PC.SS ---
SS conducted bedside contact with the patient to address nursing referral indicating patient had history of anxiety. ?SS introduced self and role.? SS asked for permission to speak in front of family member. Patient agreed. SS discussed with patient basis of referral.? Patient states she was never diagnosed with anxiety, she just feels like she had it at one time. Patient states she was never on medication and did not seek therapy. Patient, currently, has no impairments. Patient has no current thoughts of harming herself or others.? No other history of documented mental health. FOB, Alan Ortega, is involved and resides in the home. This is patient?s 6th child. Children?s ages are: 5,9,14,15,16 years old and NB. ?[place], baby boy, was born . care was completed with Dr. Spear.? Patient was consistent with . Patient plans on breast feeding and bottle feeding. Patient is not aligned with WIC, [place] assistance or Food stamps. Patient denies history of domestic violence. Patient has all resources to include: car seat, clothing and supplies.? construction services technician provided resources to include:? Parenting Network, Warm Line and community numbers. SS discussed in further detail emotional support and answered all questions appropriately. 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 ?No further intervention required at this time, addiction social worker will be available to address any further concerns. SS updated bedside nurse.
[2025-05-01 16:05] VITALS: BP 150/84; PULSE 75; RESP 16; TEMP 36.9; O2SAT 97
--- NOTE | 2025-05-01 19:15 | ESDS_ITS ---
DS: Providers Provider Date of admission: 04/29/25 10:28 Primary care physician: Fausto Robles Admitting Provider: Abbe Spear MD Attending Provider on Admission: Everardo Razo MD Consults: 04/29/25 21:30 Referral Routine Comment: Attending Provider on DC: Pricilla Jha MD ([facility]) Discharging Provider: Pricilla Jha MD ([facility]) DS: Diagnosis Problem List Completed Was Problem List Reviewed/Reconciled?: Yes Summary/Hosp Course Brief History: Patient is a 34-year-old 7 para 5 at 36 weeks and 3 days with chronic hypertension on 2 meds as well as gestational diabetes on metformin who is presenting for induction of labor. Patient started care with Dr. Dixon at [facility] and then subsequently transferred care to the [facility] STAFFING DIRECTOR clinic. Her blood pressures have been difficult to manage with values spiking to as high as 180s for the systolics and 100s for the diastolics Dr. Magaña performed a primary for difficult to control blood pressures, chronic hypertension with superimposed preeclampsia as the patient was not in labor on 04/29/2025. Please see op report for further details. Postoperatively patient's blood pressure stabilized on labetalol 400 twice daily hydralazine 5 mg 3 times daily. Her blood sugars were controlled on metformin 500 twice daily. She was discharged home postoperative day #2 in stable condition. Postoperative vital signs were stable and labs were stable. Discharge instructions given. Peripartum Data Delivery Method: Low Transverse Episiotomy Description: None Procedures: Procedures Operation Date: 04/29/25 19:30 Actual Procedure Side Surgeon p in OB Abbe Spear MD Time Spent with Patient Time attestation: Total time spent providing and/or coordinating discharge services: Exam Vital Signs Temp Pulse Resp BP Pulse Ox O2 Del Method 98.4 F 75 16 150/84 H 97 Room Air 05/01/25 16:05 05/01/25 16:05 05/01/25 16:05 05/01/25 16:05 05/01/25 16:05 05/01/25 16:05 Discharge Plan Plan Patient Disposition: HOME (Self Care) Patient condition on transfer: Stable Prescriptions/Referrals Prescriptions/Med Rec: New metformin 500 mg Tablet 500 mg PO BIDAC Qty: 60 0RF hydralazine 10 mg Tablet 10 mg PO BID Qty: 14 0RF hydrocodone-acetaminophen 5-325 mg Tablet 2 tab PO Q6HR MDD 8 PRN (Reason: Patient rated pain 9 to 10) Qty: 60 0RF ibuprofen 400 mg Tablet 800 mg PO Q8HR PRN (Reason: Pain Scale 4-6 (Moderate) Qty: 60 0RF docusate sodium 100 mg Capsule 100 mg PO QDAY Qty: 30 0RF labetalol 100 mg Tablet 400 mg PO BID 30 Days Qty: 240 0RF enoxaparin [Lovenox] 40 mg/0.4 mL syringe 40 mg subcut QDAY 42 Days Qty: 16.8 0RF Continued 400 mcg Tablet,Chewable 1 mcg PO QDAY Qty: 20 0RF Discontinued nifedipine 60 mg tablet extended release 60 mg PO QDAY 30 Days Qty: 30 1RF labetalol 400 mg tablet 400 mg PO BID 30 Days Qty: 60 2RF nifedipine 60 mg tablet extended release 60 mg PO QDAY 30 Days Qty: 30 1RF labetalol 200 mg tablet 200 mg PO TID No Action (DME) blood-glucose meter Kit See Rx Instructions .ROUTE .MEDSUPPLY Qty: 1 0RF Rx Instructions: As directed (DME) Blood Glucose Test Strip See Rx Instructions .ROUTE .MEDSUPPLY Qty: 10 0RF Rx Instructions: As directed (DME) lancets Misc See Rx Instructions .ROUTE .MEDSUPPLY Qty: 100 0RF Rx Instructions: As directed metformin 500 mg tablet 500 mg PO BID Referrals: Fausto Ferro [Primary Care Provider] - Patient/Caregiver Discharge Instructions Discharge Activity: activity as tolerated Other Discharge Activity Instructions:: Pelvic rest x 6 weeks no heavy lifting intercourse tampons or douching for 6 weeks no bathtubs or swimming pools x 6 weeks Other Discharge Diet Instructions: Gestational diabetic diet Education Materials: After a , Understanding Depression, : Caring for Yourself, C Section Dc Print Language: Tamazight Activity Restrictions/Additional Instructions: Call for heavy bleeding, fevers or chills, severe depression. F ollow-up with your primary STAFFING DIRECTOR in 1 week. Stand Alone Forms: Julisa Award Info., Patient Portal Info Letter Discharge Order Discharge Orders: Discharge (Routine); Ordered 05/01/25 Ordered By: Pricilla Jha ([facility]) Planned Discharge Date 05/01/25
== END 2025-05-01 20:07 | disposition home or self-care (01) | DRG 540 ==
LOC: S4SX 11:13 → S4NX 19:26
PROVIDERS: Admitting Provider Obstetrics & Gynecology; PCP Physician Assistant; Visit Provider Specialist
PROC: 10D00Z1 Extraction of Products of Conception, Low, Open Approach (ICD-10-PCS; CPT 59514; principal; 2025-04-29 19:15)
DX: O11.4 Pre-existing hypertension with pre-eclampsia, complicating childbirth (principal); O24.425 Gestational diabetes mellitus in childbirth, controlled by oral hypoglycemic drugs; O60.14X0 Preterm labor third trimester with preterm delivery third trimester, not applicable or unspecified; O69.81X0 Labor and delivery complicated by cord around neck, without compression, not applicable or unspecified; Z37.0 Single live birth; O99.214 Obesity complicating childbirth; Z3A.36 36 weeks gestation of pregnancy; Z86.16 Personal history of COVID-19; Z79.4 Long term (current) use of insulin
CPT/HCPCS: 36415; 59409; 76815; 80053; 81001; 83615; 83735; 84550; 85025; 85384; 85610; 85730; 86780; 86850; 86900; 86901; 94762; A4314; A4649; J0360; J0689; J1100; J2274; J2371; J2405; J2590; J3010; J3475; J3490; J7120; A9270; J2270

== ENCOUNTER 2025-05-03 14:30 | Emergency (ER) | payer MEDICAID, SELFPAY ==
[2025-05-03 14:31] VITALS: BMI 53.6
[2025-05-03 14:38] VITALS: BP 174/89; PULSE 90; RESP 19; TEMP 37.4; O2SAT 97
--- NOTE | 2025-05-03 14:43 | XR_ITS ---
Examination: Venous duplex lower extremity sonogram, bilateral. Date and time of exam: May 03, 2025, 1605 hours INDICATIONS: Postop April 29, 2025 with leg swelling and tightness the last 2 days Technique: Multiple sonographic images of the deep venous system have been obtained. B-mode/2-D grayscale imaging of vascular structures and Doppler spectral analysis (waveforms) and color performed Both legs are examined. Findings: Deep venous systems do not demonstrate abnormal echogenicity. All visualized deep veins exhibit compressibility. All visualized deep veins exhibit augmentation. Impression: Negative for deep vein thrombosis
--- NOTE | 2025-05-03 14:44 | PD.EDRME ---
Rapid Medical Screening Exam RME Arrival date/time: 05/03/25 14:30 34-year-old female with a history of type 2 diabetes presents to the emergency room with a chief complaint of bilateral lower extremity swelling and pain. Patient recently had a on 04/29/2025. I have greeted and performed a focused initial assessment of this patient. A comprehensive ED assessment and evaluation of the patient, analysis of all test results, and completion of the medical decision making process will be conducted by additional ED providers. Chief Complaint: General Adult/Misc Complain Vital signs: Vital Signs Temperature 99.4 F 05/03/25 14:38 Pulse Rate 90 05/03/25 14:38 Respiratory Rate 19 05/03/25 14:38 Blood Pressure 174/89 H 05/03/25 14:38 Pulse Oximetry (%) 97 05/03/25 14:38 Oxygen Delivery Method Room Air 05/03/25 14:38 Vital signs reviewed by provider: Yes
[2025-05-03 15:46] LABS: Collection Type, Urine Clean Catch
[2025-05-03 15:53] LABS: Basophils # (Auto) 0.0 Thou/mm3 (0.0-0.2); Basophils % (Auto) 0 % (0-2.5); Eosinophils # (Auto) 0.2 Thou/mm3 (0.0-0.5); Eosinophils % (Auto) 2 % (0-10); Hematocrit 29.0 % (36.0-46.0); Hemoglobin 9.3 g/dL (12.0-16.0); Immature Granulocytes Auto 0.06 Thou/mm3 (0.00-0.00); Lymphocytes # (Auto) 1.6 Thou/mm3 (1.0-4.8); Lymphocytes % (Auto) 20 % (10-50); Mean Corpuscular HGB Conc 32.1 g/dl (31.0-37.0); Mean Corpuscular Hemoglobin 25.9 pg (25.0-35.0); Mean Corpuscular Volume 81 fL (80-100); Monocytes # (Auto) 0.5 Thou/mm3 (0.0-0.8); Monocytes % (Auto) 6 % (0-12); Neutrophils # (Auto) 5.8 Thou/mm3 (1.8-7.7); Neutrophils % (Auto) 71 % (37-80); Nucleated Red Blood Cell # 0.00 Thou/mm3 (0.00-0.00); Nucleated Red Blood Cell % 0 /100 WBC (0); Platelet Count 282 Thou/mm3 (140-440); RDW Standard Deviation 42.6 fL (36.4-46.3); Red Blood Count 3.59 Miln/mm3 (4.00-5.20); White Blood Count 8.2 Thou/mm3 (3.6-11.0)
[2025-05-03 16:09] LABS: Bilirubin,Urine Negative (Negative); Blood,Urine 3+ (Negative); Color,Urine Yellow (Lt Yel-Yel); Glucose, Urine Negative (Negative); Ketones,Urine Negative (Negative); Leukocyte Esterase,Urine Positive (Negative); Nitrite,Urine Negative (Negative); PH,Urine 5.5 (5.0-7.0); Protein,Urine 1+ (Neg - Trace); RBC,Urine 161 /hpf (0-3); Specific Gravity,Urine 1.039 (1.001-1.035); Squamous Epithelial Cell,Urine 10 /hpf (0-5); Urobilinogen,Urine 2.0 mg/dL (0.0-1.0); WBC,Urine 18 /hpf (0-5)
[2025-05-03 16:22] LABS: INR 0.9 (0.9-1.3); Partial Thromboplastin Time 28.2 Seconds (22.0-36.0); Prothrombin Time 10.3 Seconds (9.0-12.2)
[2025-05-03 16:25] LABS: Alanine Aminotransferase 39 U/L (10-49); Albumin, Serum 3.8 gm/dL (3.5-5.0); Albumin/Globulin Ratio 1.5 (1.2-2.2); Alkaline Phosphatase 98 U/L (46-116); Anion Gap 9 (7-16); Aspartate Amino Transferase 38 U/L (0-34); BUN/Creatinine Ratio 22 Ratio (12-20); Bilirubin,Total 0.4 mg/dL (0.3-1.2); Blood Urea Nitrogen 13 mg/dL (9-23); Calcium 9.2 mg/dL (8.3-10.6); Calcium (Corrected) 9.4 mg/dL (8.5-10.1); Carbon Dioxide 23.1 mMol/L (20.0-31.0); Chloride 110 mMol/L (98-107); Creatinine (Component) 0.6 mg/dL (0.6-1.3); Estimated Creatinine Clearance 171.9 mL/min (>60); Globulin 2.6 gm/dL (2.3-3.5); Glucose 80 mg/dL (74-106); Magnesium 1.5 mg/dL (1.6-2.6); Osmolality,Calculated 282 (275-295); Potassium 4.1 mMol/L (3.4-5.1); Sodium 142 mMol/L (136-145); Total Protein 6.4 gm/dL (5.7-8.2); eGFR > 60 See Note
[2025-05-03 16:28] LABS: Clarity,Urine Hazy (Clear/Hazy); Culture Indicated,Urine Yes
--- NOTE | 2025-05-03 18:32 | EDNOTE_ITS ---
ED General RME/HPI General Chief complaint: General Adult/Misc Complain Stated complaint: SENT BY PCP DUE TO BLE SWELLING S/P C-SEC 04/29/25 Time Seen by Provider: 05/03/25 18:17 Source: patient Arrival date/time: 05/03/25 14:30 Limitations: no limitations RME / HPI RME / HPI narrative: 05/03/25 14:30 34-year-old female with a history of type 2 diabetes presents to the emergency room with a chief complaint of bilateral lower extremity swelling and pain. Patient recently had a on 04/29/2025. She has no chest pain or fever. No shortness of breath. No abdominal pain, nausea, vomiting. She is currently taking Lovenox. She has no other acute complaints.. Related Data Home Medications ?Medication ?Instructions ?Recorded ?Confirmed metformin 500 mg tablet 500 mg PO BID 03/24/2504/26 Previous Rx's ?Medication ?Instructions ?Recorded vitamins no.144-folic 1 mcg PO QDAY #20 tabs 07/06/19 acid 400 mcg chewable tablet () blood sugar diagnostic (Blood #10 ea 03/29/25 Glucose Test strips) blood-glucose meter #1 ea 03/29/25 lancets #100 ea 03/29/25 docusate sodium 100 mg capsule 100 mg PO QDAY #30 caps 05/01/25 enoxaparin 40 mg/0.4 mL 40 mg (0.4 mL) subcut QDAY 6 weeks 05/01/25 subcutaneous syringe (Lovenox) #16.8 mL hydralazine 10 mg tablet 10 mg PO BID #14 tabs hydrocodone 5 mg-acetaminophen 325 2 tab PO Q6HR PRN P atient rated 05/01/25 mg tablet pain 9 to 10 #60 tabs ibuprofen 400 mg tablet 800 mg (2 x 400 mg) PO Q8HR PRN 05/01/25 Pain Scale 4-6 (Moderate #60 tabs labetalol 100 mg tablet 400 mg (4 x 100 mg) PO BID 3 0 days 05/01/25 #240 tabs metformin 500 mg tablet 500 mg PO BIDAC #60 tabs 11/25 Allergies Allergy/AdvReac Type Severity Reaction Status Date / Time No Known Allergies Allergy Verified 05/03/25 14:31 Review of Systems Review of Systems Systems Reviewed: All systems reviewed, normal except as documented ED Exam General Limitations: Present no limitations General appearance: Present alert and in no apparent distress Head Head exam: Present atraumatic Eye Eye exam: Present normal appearance, PERRL and EOMI ENT ENT exam: Present normal exam, normal oropharynx and mucous membranes moist Neck Neck exam: Present normal inspection, full ROM and trachea midline Chest Chest inspection: Present normal inspection and symmetric chest wall rise Respiratory Respiratory exam: Present normal lung sounds bilaterally Cardiovascular Cardiovascular exam: Present regular rate, normal rhythm and normal heart sounds Abdominal Exam Abdominal exam: Present soft and normal bowel sounds Extremities Exam Extremities exam: Present normal inspection, full ROM and other (Bilateral nonpitting edema) Back Exam Back exam: Present normal inspection and full ROM Neurological Exam Neurological exam: Present alert, oriented X3 and CN II-XII intact Psychiatric Psychiatric exam: Present normal affect and normal mood Skin Skin exam: Present warm, dry, intact and normal color Course Quality Measures none Orders Category Date Time Status US venous doppler LE BI Stat Exams 05/03/25 14:43 Completed CBC Stat Lab 05/03/25 15:35 Completed CMP [Comprehensive Metabolic Panel] Stat Lab 05/03/25 15:35 Completed Magnesium Stat Lab 05/03/25 15:35 Completed PT [Prothrombin Time with INR] Stat Lab 05/03/25 15:35 Completed PTT [Partial Thromboplastin Time] Stat Lab 05/03/25 15:35 Completed UA, C/S IF [Urinalysis, C/S if Indicated] Stat Lab 05/03/25 15:00 Completed Urine Culture Stat Lab 05/03/25 15:00 Received Vital Signs Vital signs: Vital Signs Temperature 99.4 F 05/03/25 14:38 Pulse Rate 90 05/03/25 14:38 Respiratory Rate 19 05/03/25 14:38 Blood Pressure 174/89 H 05/03/25 14:38 Pulse Oximetry (%) 97 05/03/25 14:38 Oxygen Delivery Method Room Air 05/03/25 14:38 Discharge Plan Plan Patient Disposition: Home w/HOME HEALTH Patient condition on transfer: Stable Prescriptions/Referrals Prescriptions/Med Rec: No Action (DME) blood-glucose meter Kit See Rx Instructions .ROUTE .MEDSUPPLY Qty: 1 0RF Rx Instructions: As directed (DME) Blood Glucose Test Strip See Rx Instructions .ROUTE .MEDSUPPLY Qty: 10 0RF Rx Instructions: As directed (DME) [place] [facility] [place] Rx Instructions .ROUTE .MEDSUPPLY Qty: 100 0RF Rx Instructions: As directed 400 mcg Tablet,Chewable 1 mcg PO QDAY Qty: 20 0RF metformin 500 mg Tablet 500 mg PO BIDAC Qty: 60 0RF hydralazine 10 mg Tablet 10 mg PO BID Qty: 14 0RF hydrocodone-acetaminophen 5-325 mg Tablet 2 tab PO Q6HR MDD 8 PRN (Reason: Patient rated pain 9 to 10) Qty: 60 0RF ibuprofen 400 mg Tablet 800 mg PO Q8HR PRN (Reason: Pain Scale 4-6 (Moderate) Qty: 60 0RF docusate sodium 100 mg Capsule 100 mg PO QDAY Qty: 30 0RF labetalol 100 mg Tablet 400 mg PO BID 30 Days Qty: 240 0RF enoxaparin [Lovenox] 40 mg/0.4 mL syringe 40 mg subcut QDAY 42 Days Qty: 16.8 0RF metformin 500 mg tablet 500 mg PO BID Referrals: No Primary/Family,Physician [Primary Care Provider] - In 1 week Problem List Clinical Impression: Stasis edema Patient/Caregiver Discharge Instructions Education Materials: ED Leg Swelling in Both Legs Additional Instructions: Continue current therapies. Keep your legs elevated is much as possible. Continue your compression stockings. Follow-up with your primary doctor soon as possible. Return as needed for any worsening or emergent changes. Print Language: Icelandic Stand Alone Forms: Julisa Award Info., Patient Portal Info Letter MDM Clinical Information Provided by patient Medical Records Reviewed None Meds/Rx Considered, not Ordered None Labs/Rad/Tests considered, not Ordered None Chronic Illness/Social Conditions which may negatively complicate care or outcome(s)-explain: None or not applicable Lab Interpretation Lab(s) interpretation(s): CBC, CMP, are unremarkable. She has erythrocytes in her urine with no dysuria or urinary frequency. Imaging Imaging interpretation: see narrative above Dispositon Disposition: Discharge Home
== END 2025-05-03 18:40 | disposition home or self-care (01) ==
PROVIDERS: Nurse Practitioner Family; Emergency Provider Emergency Medicine
DX: R60.0 Localized edema (principal)
CPT/HCPCS: 36415; 80053; 81001; 83735; 85025; 85610; 85730; 87077; 87086; 87186; 93970; 99284

== ENCOUNTER 2025-05-14 10:29 | Outpatient (AMB) | payer MEDICAID, SELFPAY ==
[2025-05-14 10:47] VITALS: BP 172/91; PULSE 75; RESP 18; TEMP 36.5; O2SAT 97; BMI 51.7
--- NOTE | 2025-05-14 10:47 | AMBOBPPN_ITS ---
Vital Signs 05/14/25 10:47 Height 1.57 m Height Method Stated Weight 127.63 kg Weight Measurement Method Standing Scale BMI 51.7 BP 172/91 H Blood Pressure Source Automatic Cuff Blood Pressure Location Right Upper Arm Position Sitting Respiration 18 Pulse 75 Pulse Source Monitor Temp 97.7 F Temp Source Temporal Artery Scan Pulse Oximetry (%) 97 Oxygen Delivery Method Room Air Allergies/Home Meds Allergies & Medications Allergies No Known Allergies Allergy (Verified 05/14/25 10:48) Intake Visit Data Collection New Patient or Established: Established Patient (seen at [facility] within 3 years) Reason for Visit:: Seen by Clinical Staff ONLY (RN/MA): No Cosmetician Apprentice Required: No Do You Feel Safe at Home: Yes Authorities Contacted: N/A PCP or OBGYN visit in last 3 months: Yes Date of Last PCP or OBGYN visit: 05/03/25 Hx Now: No Are you currently on any form of Control: No Pain Present Currently: No Pain Scale Used: Cheney-Nuñez/Numerical Pain scale:: 0 Smoking Status 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 Past Medical History: No Hx Neurological Disorders, Yes Hx Cardiac Disorders, No Hx Cancer, No Hx Blood Disorders, No Hx Gastrointestinal Disorders, No Hx Renal Disease, No Hx Diabetes Mellitus Type 1 and No Hx Diabetes Mellitus Type 2 Questionnaires Covid-19 Vaccine Questionnaire Has patient been vacinated for Covid-19 Have you been vacinated for Covid-19: No Social History Living Situation History Marital Status: Lives With: Family Housing: House Tobacco History Smoking Status: Never smoker Second Hand Smoke Exposure: No Alcohol History Alcohol Intake: Never Domestic Abuse History Do You Feel Safe at Home: Yes EPDS - PP Depression Screening Milo Pospartum Depression Screen I have been able to laugh and see the funny side of things: (0) As much as I always could I have looked forward with enjoyment to things: (0) As much as I ever did I have blamed myself unnecessarily when things went wrong: (0) No, never I have been anxious or worried for no good reason: (0) No, not at all I have felt scared or panicky for no very good reason: (0) No, not at all Things have been getting on top of me: (0) No, I have been coping as well as ever I have been so unhappy that I have had difficulty sleeping: (0) No, not at all I have felt sad or miserable: (0) No, not at all I have been so unhappy that I have been crying: (2) Yes, quite often The thought of harming myself has occurred to me: (0) Never EPDS completed yes Care OB Visit Log OB Flowsheet Initial Weight: Not Recorded Date -?-?-?-?-?-?-?-?-?-?-?-?- EGA Weight BP Alb Glu CTX Pres Fundal ht FHR Mov Dilation Station Effacement Hx Notes Visit Note 03/29/25 -?-?-?-?-?-?-?-?-?-?-?-?- 32w 0d 132.619 kg 156/87 at 23 weeks and 2 days gestation, presents for transfer of care from Dr. Dixon. History of gestational diabetes mellitus and essential hypertension, currently on labetalol 200 mg TID and metformin BID. Reports good movement and denies symptoms suggestive of preeclampsia. Not checking blood sugars due to lack of glucometer. heart rate 145 bpm, anatomy survey normal. JACKIE 05/24/2025. History of deliveries at 37 weeks. Plan: Problem List: Gestational diabetes melli tus, essential hypertension, syphilis (treated), . Prescribe glucometer and instruct patien t to check blood glucose four times daily (fasting and 1 hour post-meals). Continue labetalol and metformin as directed. Schedule 24-hour urine collection next week to monitor for preeclampsia. Plan for delivery at 37?38 weeks unless blood pressure or glucose levels worsen. Arrange anesthesia consult and initiate monitoring. Follow up in one week. Routine counseling provided regarding labor signs, dietary guidance, and activity modifications. 04/04/25 -?-?-?-?-?-?-?-?-?-?-?-?- 32w 6d 132.619 kg 143/84 at 32w6d, transferred in third trimester. History of gestational diabetes, chronic/gestational hypertension, prior , and treated syphilis. On labetalol and metformin; adherent to diet and medications. Reports good FM, no contractions, LOF, VB, MAS, VC, or epigastric pain. Glucose readings reviewed: 84?196 mg/dL, overall stable. BP reported as well controlled; FHT 148?150 bpm. Concerned about possible early delivery based on history. Plan: Continue labetalol and metformin, with metformin taken BID near meals. Maintain glucose and BP logs. Await call to begin NSTs twice weekly. Schedule ultrasound at 36 weeks. Follow up in 1 week. Anticipate delivery around 37?38 weeks pending control. Routine precautions and education reviewed. 04/09/25 -?-?-?-?-?-?-?-?-?-?-?-?- 33w 4d 131.655 kg 146/85 @34w, presents with HTN, GDM, MAS, and left pelvic pain. On labetalol 600mg/day with continued MAS; BP control suboptimal. Glucose well controlled on metformin (fasting 81?117, postprandial 109?150). Reports intermittent pelvic pain impairing mobility. No LOF/VB/CTX. FHT WNL. Hx of elevated urine protein and received steroids at 32w. Plan: Increase labetalol to 400mg BID, s end to hospital for LFTs, renal labs. Monitor for preeclampsia. Continue metformin. Instructions for L&D visit if pain persists. Anticipate delivery 36?37w, earlier if unstable. F/u in 1 week. 04/17/25 -?-?-?-?--?-?-?-?-?-?-?-?- 34w 5d 133.47 kg 159/88 G5 at 34w5d with chronic hypertension and gestational diabetes, presents with BP 159/88, significant unilateral foot swelling, and reported contractions. Reports good FM. Denies MAS/VC/epigastric pain. Previous evaluation ruled out preeclampsia (LFTs/LDH/platelets normal), though proteinuria was 600. Labs pending. Prescription for labetalol 800 mg was not received. Blood sugars stable on metformin. Plan: New prescription for labetalol 400 mg BID and initiate nifedipine at lunch. Follow up for BP check and labs; consider induction if BP remains elevated. Order hospital ultrasound to confirm position. Continue FM monitoring, preeclampsia precautions, and weekly visits. 04/25/25 -?-?-?-?-?-?-?-?-?-?-?-?- 35w 6d 134.83 kg 133/81 occasional cephalic 40 145 active Reports good movement, no contractions. On labetalol 400mg BID and nifedipine 60mg TID for hypertension; recent BPs in 150s/60s?80s. No current symptoms of preeclampsia but at diagnostic threshold, seen every 3 days. Induction scheduled in 3 days, NST planned for tomorrow. Hyperlipidemia also noted. Plan: Proceed with scheduled induction, NST tomorrow, continue current meds, consider if BP worsens or labor does not progress, salt restriction advised, follow-up visits Wednesday and Wednesday, next appointment will be at hospital. JACKIE Calculator Estimated Delivery Date Method Current WG Current Estimate 05/24/25 Ultrasound #1 38w 4d Other Estimates 05/24/25 LMP (Uncertain) 38w 4d HPI Interval History: 34 yo for 2 week PP visit. primary c/s for failed induction at 36 week. worsening BY despite MGSO4 and labetolol patient was dc home on Hydralazine 10mg tid and Metformin 500 bid. denies PIH complaints. bottle feeding. patient was tearful talking about it. stopped PO pain med. Levanox sc for blood clots. no complaint of wound infection, no c/o depression, sibling adjusting, father involved. limited support at home. denies leg pain/calf pain, no s/s of phlebitis. 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 normal heart rate and rythm, euthyroid. breast soft. abdomen soft, non tender, lower transverse incision, clean, intact, no s/s of infection, uterus below umb, small lochia, + 1 edema. 2+ dtr, negative homans Office Procedures OB Clinic LOC & Office Proc's Nursing/Assessment Patient Status: Established Patient OB Clinic Nursing Assessment: Medication Reconciliation, Update PMH in EMR and Vital Signs OB Clinic Coordination of Care: Complex Care and Chronic Disease 1-5, Consent,records obtained, informed consent, Education Simp Pt/Fam and Staff clarify orders Established Patient Charge Established Patient Point Assignment: 85 Post Follow-up Visit Post Follow up Visit: Yes Assessment & Plan Diagnosis / Problem List (1) 2 weeks follow-up: Status: Acute (2) delivery delivered: Status: Acute Plan continue Metformin 500 bid as directed and GDM diet, continue Hydralazine 10 mg. add labetolol 10 mg tid. and continue lovonox SQ. Ibuprophen or tylenol as needed for pain. increase fluid, review PIH s/s and ER precaution. discuss wound care, keep dry. no sex. f/u with OB 2 week Care Reviewed delivery summary and any complications: Yes Uterus involuted to: below umb Perineal / incision healing noted: No Screened for depression: Yes Depression counseling provided: No Discussed family planning & contraception: Yes Contraception planned: patient wants BTL, does not want more children Counseling on safe resumption of sexual activity: Yes Counseling on gradual excercise: Yes Discussed and concerns (describe), provided support: Yes Referred to trading specialist: Yes Counseled on good nutrition, hydration, and self care: Yes Reviewed vaccine status: No Additional follow up plans: advised appt with clinic, force fluid. discuss pumping and brewers yeast to increase milk supply Infant care discussed; questions answered: feeding Additional counseling & anticipatory guidance provided: RTC 2 week f/u
== END 2025-05-14 11:13 | disposition home or self-care (01) ==
LOC: HODSOBC 10:29
PROVIDERS: Supervising Provider Advanced Practice Midwife; Visit Provider Advanced Practice Midwife
DX: Z39.2 Encounter for routine postpartum follow-up (principal); Z39.1 Encounter for care and examination of lactating mother